=== PATIENT | female | born 1980 | race Caucasian/White ===

== ENCOUNTER 2017-11-30 10:27 | Day surgery (SDC) | payer OTHER, SELFPAY ==
[2017-11-30] VITALS (7 sets, daily range): BP systolic 124–140; BP diastolic 72–84; PULSE 61–95; RESP 16–18; TEMP 36.2–36.8; O2SAT 92–100; BMI 28.0
[2017-11-30] MEDS: Bupivacaine 0.25% 30 ML Vial (12:49)
[2017-11-30] MEDS: Cefazolin 2 GM in 0.9% Normal Saline 100 ML IV (12:49)
--- NOTE | 2017-11-30 13:23 | PCM.DC.URO ---
Discharge Diet: Light diet - advance as tolerated Discharge Activity: Return to Normal Activity, May not drive while taking narcotic pain medications. Call your doctor if your incision/area has: Continuous Slow Oozing, Sudden Increased Bleeding, Increased Pain/ Swelling, Increased Redness, Foul Smelling Discharge, Swelling at the incision site Call your doctor if you observe: Fever of 101 or Higher Instructions: Stress Urinary Incontinence: Having Midurethral Sling Surgery Allergies/Adverse Reactions: Allergies codeine Allergy (Verified 01/29/17 20:17) Rash NSAIDS (Non-Steroidal Anti-Inflamma Adverse Reaction (Verified 11/28/17 13:23) has had gastric bypass and can't marguerite. oral nsaids ropinirole [From Requip] Adverse Reaction (Verified 01/29/17 20:17) Low blood pressure Medications to take at Discharge Citalopram Hydrobromide [Celexa] 40 mg PO DAILY 05/06/14 Biotin 1 mg PO DAILY 11/28/17 Cyanocobalamin [Vitamin B12] 500 mcg PO DAILY@0800 11/28/17 Vitamin Patch 1 patch TOPICAL DAILY 11/28/17 Ciprofloxacin [Cipro] 500 mg PO BID #6 tab 11/30/17 Hydrocodone Bitart/Apap 5-325 [[place] 5MG-325MG] 1 tab PO Q6H PRN PRN 6 Days #20 tab 11/30/17 Primary Care Physician: Chandni Wang NP-C [Primary Care Provider] - Please Follow Up With: Raghu Stanley MD When: in 2 weeks, please call to make an appointment.
--- NOTE | 2017-11-30 13:28 | DCINST_ITS ---
Discharge Diet: Light diet - advance as tolerated Discharge Activity: Return to Normal Activity, May not drive while taking narcotic pain medications. Call your doctor if your incision/area has: Continuous Slow Oozing, Sudden Increased Bleeding, Increased Pain/ Swelling, Increased Redness, Foul Smelling Discharge, Swelling at the incision site Call your doctor if you observe: Fever of 101 or Higher Instructions: Stress Urinary Incontinence: Having Midurethral Sling Surgery Allergies/Adverse Reactions: Allergies codeine Allergy (Verified 01/29/17 20:17) Rash NSAIDS (Non-Steroidal Anti-Inflamma Adverse Reaction (Verified 11/28/17 13:23) has had gastric bypass and can't marguerite. oral nsaids ropinirole [From Requip] Adverse Reaction (Verified 01/29/17 20:17) Low blood pressure Medications to take at Discharge Citalopram Hydrobromide [Celexa] 40 mg PO DAILY 05/06/14 Biotin 1 mg PO DAILY 11/28/17 Cyanocobalamin [Vitamin B12] 500 mcg PO DAILY@0800 11/28/17 Vitamin Patch 1 patch TOPICAL DAILY 11/28/17 Ciprofloxacin [Cipro] 500 mg PO BID #6 tab 11/30/17 Hydrocodone Bitart/Apap 5-325 [[place] 5MG-325MG] 1 tab PO Q6H PRN PRN 6 Days #20 tab 11/30/17 Primary Care Physician: Chandni Wang NP-C [Primary Care Provider] - Please Follow Up With: Raghu Stanley MD When: in 2 weeks, please call to make an appointment.
--- NOTE | 2017-11-30 13:34 | OP.PCM_ITS ---
Problem List (1) Female stress incontinence Status: Acute Report of Operation Date of Procedure: 11/30/17 Pre-Operative Diagnosis: Stress incontinence Post-Operative Diagnosis: Same Surgery/Procedure Performed:: cystoscopy and placement of a tension-free vaginal sling with mesh Description of Surgical Findings:: 37-year-old female taken back to the operating room after smooth induction of general anesthesia she was placed supine on the table and then placed in high lithotomy position she underwent intubation and general anesthesia. The urethra and vaginal area and the vaginal vault were all prepped and draped also the lower abdomen was prepped and draped in usual sterile fashion I then placed a catheter into the bladder there was a 16 Sudanese catheter drain the bladder and marked out the mid urethra I then infiltrated the mid urethra with lidocaine mated incision in the vaginal mucosa right below the mid urethra using curved Kirk's and dissected space first of the left side laterally underneath the urethra to to the pubic bone into the space of Retzius and then under the right side again made a tractto the pubic bone on the right side. Once this is created then I marked the midline pubic bone went 2 cm from the midline on the right side and 2 cm the left side made a small incision in the skin past the first trocar top down on the right side passing behind the pubic bone into the space created in the vaginal mucosa for the trocar once this was passed then looked inside the bladder and there was no injury or perforation of the bladder by the trocar or injury of the urethra by the trocar and grabbed the end of the sling and plaque passed that up but a snap at this end I then went back to the right side past the trocar top down on the right side passing the trocar into the space of Retzius and then passing the trocar guiding the trocar down my finger guided right into this into the incision in the vaginal intramedullary mucosa on the right side once the trocar was passed on the right side looked inside the bladder and there was no injury or perforation of the bladder no injury to the urethra I then grabbed the end of the sling on that side pulled it up and then first a tension the sling flat below the urethra then I used a 20 Sudanese sound and tension the sling up on both sides up to the 20 Sudanese sound but no tighter than this once the sling was nice and flat below the urethra up to the 20 Sudanese sound then I cut both ends of the sling was pulled this sheath up and the sling was deployed and then pulled down the vaginal mucosa I checked a urethra sling was below the urethra again was not very tight I was nice and loose below the urethra and then cut off the sling suprapubically I then inspected the bladder again with a cystoscope using both the 30 and 70? lens there is no injury to the urethra no injury to the bladder. I then inspected the bladder circumferentially with 30 and 70? and no perforation of the bladder with the sling material then pulled the vaginal mucosa down over the sling again the sling was nice and loose below the urethra tension with proper and then closed the vaginal incision with interrupted 3-0 Vicryl's. I then closed the suprapubic incision with Dermabond glue. Patient' s bladder was drained her anesthesia was reversed and she is taken back to the PACU in good condition and she is able to urinate she will go home without a catheter. Type of Anesthesia:: General Drains: none - Admit VTE Documentation VTE Present on Admission: No VTE Mechan Device Prophylaxis: SCD's VTE Pharm Prophylaxis ordered?: No Reason prophylaxis not ordered:: Treatment Not Indicated
== END 2017-11-30 15:50 | disposition home or self-care (01) ==
LOC: SDC 10:28 → AC 10:30
PROVIDERS: Family Provider Nurse Practitioner Primary Care; PCP Nurse Practitioner Primary Care; Visit Provider Urology
PROC: 0TJB8ZZ Inspection of Bladder, Via Natural or Artificial Opening Endoscopic (ICD-10-PCS; CPT 57288; principal; 2017-11-30 12:20)
DX: N39.3 Stress incontinence (female) (male) (principal); F32.9 Major depressive disorder, single episode, unspecified; G25.81 Restless legs syndrome; J45.20 Mild intermittent asthma, uncomplicated; I15.9 Secondary hypertension, unspecified; Z86.718 Personal history of other venous thrombosis and embolism; Z86.711 Personal history of pulmonary embolism; Z98.84 Bariatric surgery status; Z79.899 Other long term (current) drug therapy; Z87.891 Personal history of nicotine dependence
CPT/HCPCS: 00860; 57288; J7120; C1771; J2405

== ENCOUNTER 2018-03-22 06:49 | Day surgery (SDC) | payer OTHER, SELFPAY ==
[2018-03-22 06:17] VITALS: BP 138/89; PULSE 52; RESP 14; TEMP 36.3; O2SAT 98; BMI 27.3
--- NOTE | 2018-03-22 07:25 | PCM.DC.URO ---
Discharge Diet: Light diet - advance as tolerated Discharge Activity: May not drive while taking narcotic pain medications. May shower in (days): 2 Call your doctor if your incision/area has: Continuous Slow Oozing, Sudden Increased Bleeding, Increased Pain/ Swelling, Increased Redness, Foul Smelling Discharge, Swelling at the incision site Call your doctor if you observe: Fever of 101 or Higher Suture Line Care: Avoid Pulling/Pushing, Avoid Pinching/Bending Allergies/Adverse Reactions: Allergies codeine Allergy (Verified 03/15/18 12:56) Rash NSAIDS (Non-Steroidal Anti-Inflamma Adverse Reaction (Verified 03/15/18 12:56) has had gastric bypass and can't marguerite. oral nsaids ropinirole [From Requip] Adverse Reaction (Verified 03/15/18 12:56) Low blood pressure Medications to take at Discharge Citalopram Hydrobromide [Celexa] 40 mg PO DAILY 05/06/14 Biotin 1 mg PO DAILY 11/28/17 Cyanocobalamin [Vitamin B12] 500 mcg PO TUTA 11/28/17 Vitamin Patch 1 patch TOPICAL DAILY 11/28/17 Iron,Carbonyl [Carbonyl Iron] 65 mg PO TUTHSA 03/15/18 Oxybutynin Chloride [Ditropan Xl] 10 mg PO DAILY 03/15/18 Cephalexin [Keflex] 500 mg PO Q8 #9 cap 03/22/18 Hydrocodone/Acetaminophen [[place] 5-325 Tablet] 1 ea PO Q4H PRN PRN 3 Days #10 tab 03/22/18 The following prescriptions were given: Hydrocodone/Acetaminophen [[place] 5-325 Tablet] 1 ea PO Q4H PRN PRN 3 Days #10 tab PRN Reason: Pain Cephalexin [Keflex] 500 mg PO Q8 #9 cap Primary Care Physician: Chandni Wang NP-C [Primary Care Provider] - Please Follow Up With: Raghu Stanley MD When: Surgery next Sunday.
[2018-03-22] MEDS: Cefazolin 2 GM in 0.9% Normal Saline 100 ML IV (07:30)
--- NOTE | 2018-03-22 07:30 | RAD_ITS ---
STUDY: X-RAY - PELVIS REASON FOR EXAM: Female, 37 years old. InterStim therapy. TECHNIQUE: One view of the pelvis was obtained. COMPARISON: None. FINDINGS: Intraoperative imaging was provided for InterStim therapy. The metallic device is seen overlying the right upper pelvis. RAD/Pelvis 1 or 2 Views IMPRESSION: Imaging provided for InterStim therapy. Electronically Signed: Ramo Williamson MD at 10:29 EDT Tel [phone], Service support ,
[2018-03-22 08:50] VITALS: BP 135/89; BP 138/89; PULSE 59; RESP 18; O2SAT 100
--- NOTE | 2018-03-22 08:50 | OP.PCM_ITS ---
Report of Operation Date of Procedure: 03/22/18 Pre-Operative Diagnosis: Overactive bladder and urge incontinence Post-Operative Diagnosis: Same Surgery/Procedure Performed:: InterStim implant stage I Description of Surgical Findings:: 37-year-old female who has a history of gastric bypass surgery and obesity was lost a lot of weight and she had a history of stress incontinence and mixed incontinence she underwent a sling procedure which help with the stress incontinence but still has severe urge incontinence at night she will be laying in bed and suddenly get wet with sudden spasms. She is tried multiple medications with no improvement. We did a staged PNE in the office for a test which went successful for about a day so because of this we are going to do a staged implant for InterStim to see if this will help with her bladder control and urge incontinence. 37-year-old female placed supine on the table she underwent sedation the lower back and sacral area was then prepped and draped in usual sterile fashion. We then used fluoroscopy to identify the sacral promontory's connected this with the needle and then lined up the other needle along the edge of the sacrum to hopefully find the S3 foramen. We started then on the patient's right side and put the first needle in we used fluoroscopy both AP and lateral view appeared to be that the first needle was and what we suspected either an S4 S3 we tested it and we had good brittany but no toe, so then we went 2 cm higher and put the needle and again suspected that this could be S3 however he had angular rotation of the calf and hip and brittany so in looking at it we felt that the angle coming into the foramen was to sleep so then we went further higher North with a more acute angle and came into what felt like the S3 on the skin on the sacrum under fluoroscopy we tested this needle point and at this point we had good brittany and also be a good toe response in the right side we decided to use this of the implant since we had good motor response of both brittany and toe , I then made an incision in the skin, use the guidewire through the needle left this in place, then used the introducer sheath and advanced this all the way down so that the radiopaque marker in the introduced sheath was in the lower two thirds between the plates of the anterior and posterior plate of the sacrum. Once this was there then we advanced the tined permanent wire through the sheath and we made sure that we had one stimulation above the plate and 3 below the plate, and then we tested 0, 1, 2, 3 and all 3 sites had good response on brittany and toe. Once the secured all 3 responses then pulled back on the sheath and this deployed the tines to secure the lead in place we then made an small incision on the lateral aspect of the patient's right buttocks and below the iliac crest. We then attached the temporary lead to the permanent lead and then tunneled this to the lateral side and then attached this lead to the temporary connector device. The incisions were then closed with subcuticular particular stitches. Dressings were placed, and then patient was taken back to the PACU in stable condition and will activate the InterStim device for a week of trial stimulation she will be back next week for either removal of the device if it fails, or implant of the generator, anticipate that she will do fairly well since we had a good placement of the lead and good response and brittany and toes. Type of Anesthesia:: General Drains: none - Admit VTE Documentation VTE Present on Admission: No VTE Mechan Device Prophylaxis: SCD's VTE Pharm Prophylaxis ordered?: No Reason prophylaxis not ordered:: Treatment Not Indicated
[2018-03-22 08:51] VITALS: BP 128/85; BP 138/89; PULSE 66; RESP 18; TEMP 36.1; O2SAT 99
[2018-03-22 09:00] VITALS: BP 121/87; BP 138/89; PULSE 64; RESP 18; O2SAT 100
[2018-03-22 09:04] VITALS: BP 138/89; BP 146/89; PULSE 63; RESP 18; TEMP 35.7; O2SAT 100
[2018-03-22 10:22] VITALS: BP 138/89
== END 2018-03-22 10:36 | disposition home or self-care (01) ==
LOC: SDC 06:50 → AC 06:50
PROVIDERS: Family Provider Nurse Practitioner Primary Care; PCP Nurse Practitioner Primary Care; Visit Provider Urology
PROC: (CPT 64581; principal; 2018-03-22 07:15)
DX: N32.81 Overactive bladder (principal); N39.46 Mixed incontinence; F32.9 Major depressive disorder, single episode, unspecified; Z98.84 Bariatric surgery status; Z86.711 Personal history of pulmonary embolism; Z87.891 Personal history of nicotine dependence; G47.30 Sleep apnea, unspecified; G25.81 Restless legs syndrome; E66.9 Obesity, unspecified; Z68.27 Body mass index [BMI] 27.0-27.9, adult; Z71.3 Dietary counseling and surveillance
CPT/HCPCS: 00630; 64581; 95972; 72170; 76000; C1778; C1820

== ENCOUNTER 2018-03-29 10:39 | Day surgery (SDC) | payer OTHER, SELFPAY ==
[2018-03-29] VITALS (8 sets, daily range): BP systolic 105–135; BP diastolic 69–83; PULSE 48–66; RESP 14–16; TEMP 36.3–36.7; O2SAT 92–100; BMI 27.1
[2018-03-29] MEDS: Cefazolin 2 GM in 0.9% Normal Saline 100 ML IV (12:15)
--- NOTE | 2018-03-29 13:25 | DCINST_ITS ---
Discharge Diet: Light diet - advance as tolerated Discharge Activity: Return to Normal Activity, May not drive while taking narcotic pain medications. May shower in (days): 2 Call your doctor if your incision/area has: Continuous Slow Oozing, Sudden Increased Bleeding, Increased Pain/ Swelling, Increased Redness, Foul Smelling Discharge, Swelling at the incision site Call your doctor if you observe: Fever of 101 or Higher Suture Line Care: Avoid Pulling/Pushing, Avoid Pinching/Bending Allergies/Adverse Reactions: Allergies codeine Allergy (Verified 03/15/18 12:56) Rash NSAIDS (Non-Steroidal Anti-Inflamma Adverse Reaction (Verified 03/15/18 12:56) has had gastric bypass and can't marguerite. oral nsaids ropinirole [From Requip] Adverse Reaction (Verified 03/15/18 12:56) Low blood pressure Medications to take at Discharge Citalopram Hydrobromide [Celexa] 40 mg PO DAILY 05/06/14 Biotin 1 mg PO DAILY 11/28/17 Cyanocobalamin [Vitamin B12] 500 mcg PO TUTHSA 11/28/17 Vitamin Patch 1 patch TOPICAL DAILY 11/28/17 Iron,Carbonyl [Carbonyl Iron] 65 mg PO TUTA 03/15/18 Oxybutynin Chloride [Ditropan Xl] 10 mg PO DAILY 03/15/18 Cephalexin [Keflex] 500 mg PO Q8 #9 cap 03/22/18 Hydrocodone/Acetaminophen [[place] 5-325 Tablet] 1 ea PO Q4H PRN PRN 3 Days #10 tab 03/22/18 Cephalexin [Keflex] 500 mg PO Q8 #9 cap 03/29/18 Hydrocodone/Acetaminophen [[place] 5-325 Tablet] 1 ea PO Q4H PRN PRN 5 Days #14 tab 03/29/18 The following prescriptions were given: Hydrocodone/Acetaminophen [[place] 5-325 Tablet] 1 ea PO Q4H PRN PRN 5 Days #14 tab PRN Reason: Pain Cephalexin [Keflex] 500 mg PO Q8 #9 cap Primary Care Physician: Chandni Wang NP-C [Primary Care Provider] - Please Follow Up With: Raghu Stanley MD When: April 25 at 10 am.
--- NOTE | 2018-03-29 13:26 | PCM.OPRPT ---
Report of Operation Date of Procedure: 03/29/18 Pre-Operative Diagnosis: Urge incontinence and overactive bladder status post stage I InterStim implant Post-Operative Diagnosis: Same Surgery/Procedure Performed:: Stage II implant of InterStim device Description of Surgical Findings:: 37-year-old female with severe urge incontinence and overactive bladder who presents to the operating room for stage II implant, she underwent stage I implant last week and had a very good response. She had good control of her bladder was much matrix drier tender had less accidents and was happy with the response to proceed with stage II implant of the generator device. 37-year-old female taken back to the operating room she was placed supine and then position face down on the table made sure all her pressure points were padded she was secured and comfortable in the bed then underwent sedation by anesthesia, the bandages and dressings were removed from stage I implant we left a temporary extension off the field we then prepped and draped the field over the generator implant site. Made an incision following the old incision of the implant site cutting the old stitches and then also cut the old Lisa's fascia stitches, I then found the temporary and the permanent lead I cut the stitches on the boot and remove the plastic boot and then I cut the boot off the temporary extension wire and then the extension wire was then pulled off the field from under the drapes by the nurse, I think clean the lead and inspected there is no signs of injury or damage and then placed the lead into the generator and put the generator into the pocket and we tested it, when we tested the first time we had very high impedances we took out the lead and the generator injected remove the cleaned it again and reposition the lead into the generator making sure it was all the way with all the blue showing, I then used the wrench and tightened the screw on the generator for 2 clicks and then I could see all the blue from the from the permanent lead and the generator and the put the generator in the pocket and we tested for impedance and we had very good results with low impedance. With I then closed the pocket with interrupted 3-0 Vicryl and a subcuticular 4-0 Monocryl in the skin and placed Steri-Strips on the skin. Patient was then awakened from anesthesia and taken back to PACU in good condition and she will undergo training on how to use the InterStim device and will follow-up in about a month for checkup. Type of Anesthesia:: Local MAC Drains: none - Admit VTE Documentation VTE Present on Admission: No VTE Mechan Device Prophylaxis: SCD's VTE Pharm Prophylaxis ordered?: No Reason prophylaxis not ordered:: Treatment Not Indicated
== END 2018-03-29 14:59 | disposition home or self-care (01) ==
LOC: SDC 10:40 → AC 10:40
PROVIDERS: Family Provider Nurse Practitioner Primary Care; PCP Nurse Practitioner Primary Care; Visit Provider Urology
PROC: (CPT 64581; principal; 2018-03-29 12:00)
DX: N32.81 Overactive bladder (principal); F32.9 Major depressive disorder, single episode, unspecified; Z86.718 Personal history of other venous thrombosis and embolism; Z98.84 Bariatric surgery status; Z79.899 Other long term (current) drug therapy; Z87.891 Personal history of nicotine dependence; G25.81 Restless legs syndrome; N39.46 Mixed incontinence; J45.20 Mild intermittent asthma, uncomplicated
CPT/HCPCS: 00630; 64581; 64590; J7120; C1767; J2405

== ENCOUNTER 2019-12-14 14:42 | Emergency (ER) | payer OTHER, SELFPAY ==
[2019-12-14 14:42] VITALS: BP 158/106; PULSE 98; RESP 16; TEMP 36.8; O2SAT 100; BMI 28.0; BMI 33.4
--- NOTE | 2019-12-14 15:04 | CT_ITS ---
STUDY: CT ABDOMEN AND PELVIS WITH CONTRAST REASON FOR EXAM: Female, 39 years old. LOW PELVIS PAIN WITH DYSURIA, PRIOR BLADDER FISTULA REPAIR, GASTRIC BY-PASS, APPY, PARTIAL HYSTERECTOMY AND TENS UNIT FOR BLADDER RADIATION DOSAGE (If Supplied By Facility): CTDIvol = ( 17.41 ) mGy, DLP = ( 2073.62 ) mGycm TECHNIQUE: Transaxial images were obtained from the dome of the diaphragm to the symphysis pubis without oral contrast. IV 100mL Isovue-[id number] was administered. Sagittal and coronal images were reconstructed. Individualized dose optimization techniques were used for this CT. COMPARISON: Previous study of December 13, 2016 FINDINGS: The visualized lung bases are unremarkable. The visualized portions of the heart are within normal limits. Normal liver. Normal gallbladder and extrahepatic biliary system. Normal spleen. Normal pancreas. Normal bilateral adrenal glands. Normal right kidney. Normal left kidney. Status post gastric surgical changes are noted. Postsurgical changes of small bowel in the left upper quadrant of the abdomen are also noted. Normal colon. There is non-visualization of the appendix. Normal abdominal aorta. Normal inferior vena cava. Normal retroperitoneum. Normal urinary bladder. There is absence of the uterus consistent with a prior hysterectomy. There is a 1.3 cm left ovarian cyst. There is a stimulator unit in the subcutaneous soft tissues of the right gluteal area with electrode lead seen in the right presacral region. Normal osseous structures. CT/Abdomen/Pelvis W IV Cont ONLY IMPRESSION: 1. Status post gastric surgical changes. 2. Postsurgical changes of small bowel in the left upper quadrant of the abdomen. 3. Status post hysterectomy. 4. Stimulator unit seen in the subcutaneous soft tissues of the right gluteal area with electrode lead seen in the right presacral region. 5. There is no evidence of free intra-abdominal or intrapelvic air, fluid, or inflammatory process. Electronically Signed: Hany Newman MD at 16:54 EST , Service support ,
[2019-12-14] MEDS: Ondansetron 4 MG/2 ML Vial IV (15:15)
[2019-12-14] MEDS: 0.9% Normal Saline 1,000 ML 1000 ML IV (15:16)
[2019-12-14] MEDS: Morphine 4 MG/ML Syringe IV (15:16)
[2019-12-14 15:35] LABS: Mucous, Urine 0 SEEN /hpf (<or=2+)
[2019-12-14 15:36] LABS: Color, Urine Yellow (Yellow); Glucose, Dipstick Normal (Normal); Ketone-Dipstick Negative (Negative); Leukocyte Esterase-Dipstick 500 /ul (Negative); Nitrite-Dipstick Negative (Negative); Occult Blood-Urine 150 /ul (Negative); Protein-Dipstick 100 mg/dl (Negative); Specific Gravity, Urine 1.015 (1.002-1.030); Urine Bilirubin Dipstick Negative (Negative); Urine Clarity Cloudy (Clear); Urine Urobilinogen 1 mg/dl (Normal)
[2019-12-14 15:43] LABS: Absolute Lymphocyte Count 1.55 X10^3/uL (0.83-4.51); Absolute Neutrophil Count 5.3 X10^3/uL (2.0-7.7); Basophil# 0.07 X10^3/uL; Basophil% 0.9 % (0-1); Eosinophil# 0.46 X10^3/uL; Eosinophils% 5.6 % (0-5); Hematocrit 43.6 % (37-47); Hemoglobin 14.2 g/dL (12.0-15.0); Lymphocyte # 1.55 X10^3/ul (4.0); Lymphocyte % 18.9 % (19-41); Mean Corp Hgb Conc 32.6 g/dL (32-36); Mean Corpuscular Hgb 28.7 pg (27.0-32.0); Mean Corpuscular Volume 88.3 fL (81-99); Mean Platelet Vol. 10.2 fl (6.2-12.0); Monocyte# 0.78 X10^3/uL; Monocyte% 9.5 % (0-10); NRBC Flagged by Analyzer 0 % (0-5); Neutrophil # 5.31 X10^3/uL (2.7-7.7); Neutrophil % 64.9 % (47-70); Platelet Count 236 K/mm3 (150-450); RBC Distribution Width CV 13.3 % (11.6-14.6); Red Blood Count 4.94 M/mm3 (4.2-5.4); White Blood Count 8.2 K/mm3 (4.4-11.0)
[2019-12-14 15:44] LABS: White Blood Cells >100 SEEN /hpf (0-5)
[2019-12-14 15:45] LABS: Red Blood Cells-Urine 5-10 SEEN /hpf (0-5); Squamous Epithelial Cells - UA 5-10 SEEN /hpf (5-10)
[2019-12-14 15:46] LABS: Bacteria 1+ /hpf (None Seen)
[2019-12-14 15:53] LABS: ALB/GLOB Ratio 0.9 RATIO (0.9-2.4); AST(SGOT) 21 U/L (15-37); Alanine Aminotransfer ALT/SGPT 27 U/L (13-56); Albumin, Serum 3.1 g/dL (3.2-5.0); Alkaline Phosphatase 98 U/L (45-117); Anion Gap 3 (5-15); BUN 12 mg/dL (7-18); BUN/Creat Ratio 13.5 RATIO (10-20); Calcium,Total 8.6 mg/dL (8.5-10.1); Chloride 109 mmol/L (98-107); Creatinine, Serum 0.89 mg/dL (0.55-1.02); EST Glomerular Filtration Rate 75 mL/min (>60); Est Glom Filt Rate - Afr Amer 91 mL/min (>60); Estimated Creatinine Clearance 79.45 ml/min; Globulin 3.6 g/dL (2.2-4.2); Glucose 133 mg/dL (74-106); Lipase 43 U/L (73-393); Potassium 3.6 mmol/L (3.5-5.1); Protein, Total 6.7 g/dL (6.4-8.2); Sodium Level 141 mmol/L (136-145)
--- NOTE | 2019-12-14 17:04 | ED.DCSUM_ITS ---
History of Present Illness Informant: Patient - Abdominal Pain/Flank Pain Onset: Yesterday Context: Gradual Onset Timing: Continuous Quality: Sharp Location: RLQ, LLQ Current Severity: Severe Maximum Severity: Severe Worsened by: Movement Relieved by: Remaining Still - Nausea/Vomiting/Emesis GI Symptom: Nausea. Negative for: Vomiting - Diarrhea/Melena/Hematochezia GI Symptom: Negative for: Diarrhea, Melena, Hematochezia Associated Symptoms: Dysuria, Frequency, Urgency. 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 She describes the pain is sharp and stabbing. Pain is constant only worse with movement. She has had nausea without vomiting. She denies diarrhea melena or hematochezia. She has no vaginal bleeding or discharge which she has had a hysterectomy. She does have history of ovarian cyst. She also has a history of UTI. She has not yet been on antibiotics. She has not been constipated. 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 oral nsaids ropinirole [From Requip] Adverse Reaction (Verified 12/14/19 15:02) Low blood pressure Primary Care Physician: Chandni Wang NP-C [Primary Care Provider] - Review of Systems All systems negative except as indicated General: Denies: Chills, Fever Eyes: Denies: Visual changes - bilaterally, Blurred Vision - bilaterally, Diplopia ENT: Denies: Rhinorrhea, Sore throat Cardiovascular: Denies: Chest pain, Palpitations, Heart racing Respiratory: Denies: Dyspnea, Cough, Sputum, Dyspnea on exertion, Orthopnea Gastrointestinal: Reports: Abdominal pain, Nausea. Denies: Vomiting, Diarrhea, Constipation, Melena, Hematochezia Genitourinary: Reports: Dysuria, Frequency. Denies: Hematuria Musculoskeletal: Denies: Myalgias, Arthralgias, Neck pain, Back pain Skin: Denies: Rash, Abscess, Abrasions, Wounds Neurological: Denies: Weakness, Parasthesia Hematologic: Denies: Easy bruising, Easy bleeding <Yadiel Mendosa - Last Filed: 12/14/19 17:04> Physical Exam Vital Signs/Narrative: Vital Signs Temp Pulse Resp BP Pulse Ox 12/14/19 14:42 98.2 F 98 16 158/106 H 100 Inital Vital Signs reviewed: Yes General: Well nourished, Well developed, No Acute Distress Head: Normocephalic, Atraumatic Eyes: Perrl, EOMI ENT: Moist mucous membranes Neck: Supple, Nontender Cardiovascular: Regular rate, Regular rhythm, No murmurs Respiratory: No distress, CTA bilaterally, Chest nontender Abdomen: Soft, Nondistended, Normal bowel sounds, No masses, Tender - Patient has right lower quadrant and left lower quadrant tenderness on palpation. There is no guarding or rebound. She has no CVA tenderness.. Negative for: Jameson's sign Back: Nontender, Normal Inspection. Negative for: CVA tenderness Extremities: Nontender, No edema Skin: Normal color, No rash Neurological: Alert, Oriented x3 <Yadiel Mendosa - Last Filed: 12/14/19 17:04> Vital Signs/Narrative: Vital Signs Pulse Resp BP Pulse Ox 12/14/19 19:12 80 18 132/77 H 100 12/14/19 17:53 71 16 159/89 H 98 <Carlos Elise - Last Filed: 12/14/19 20:44> Diagnostic/Tx/Re-eval CT: Abdomen and Pelvis - Medical Decision Making Patient was treated with IV fluids as well as morphine and Zofran. CBC, CMP, lipase were obtained and all are unremarkable. Urinalysis is consistent with a urinary tract infection she has positive nitrates as well as 25 white blood cells seen. CT scan abdomen pelvis with IV contrast shows chronic changes from a gastric bypass surgery but there is no acute intra-abdominal or intrapelvic abnormalities noted of the radiologist. Repeat exam, repeat abdominal exam is soft nontender and the patient is able to tolerate by mouth. We will discharge the patient home with Keflex. She will follow-up with her primary care this week. A urine culture was sent. I will also prescribe her Zofran. She was given return precautions. Patient was agreeable with plan of care and all questions were answered. <Yadiel Mendosa - Last Filed: 12/14/19 17:04> - Medical Decision Making Patient presents with lower abdominal pain. Vitals as above. Nontoxic. Alert and oriented. Skin appears normal. Abdomen soft. CT unremarkable. Nothing acute. Urinalysis shows signs of infection. Otherwise labs unremarkable. Culture pending. Patient was treated with Rocephin and discharged on Keflex. Follow-up with primary care. Return for any new or worsening issues. <Carlos Elise - Last Filed: 12/14/19 20:44> ED Disposition <Yadiel Mendosa - Last Filed: 12/14/19 17:04> <Carlos Elise - Last Filed: 12/14/19 20:44> - Plan for ED Patient: Disposition: Home or Assisted Living Diagnosis: UTI (urinary tract infection), Abdominal pain Instructions: Bladder Infection, Female (Adult) Prescriptions: Cephalexin [Keflex] 500 mg PO BID #14 cap Prescription Printed Ondansetron [Zofran Odt] 4 mg PO Q8H PRN PRN #12 tab PRN Reason: Nausea Prescription Printed Referrals: Chandni Wang NP-C [Primary Care Provider] -
[2019-12-14] MEDS: Ceftriaxone 1 GM/50 ML BAG IV (17:23)
[2019-12-14] MEDS: oxyCODONE 5 MG Tablet PO (17:42)
[2019-12-14 17:53] VITALS: BP 159/89; PULSE 71; RESP 16; O2SAT 98
[2019-12-14 19:12] VITALS: BP 132/77; PULSE 80; RESP 18; O2SAT 100
== END 2019-12-14 19:14 | disposition home or self-care (01) ==
PROVIDERS: Emergency Provider Physician Assistant Medical; PCP Nurse Practitioner Primary Care
DX: N39.0 Urinary tract infection, site not specified (principal); N83.209 Unspecified ovarian cyst, unspecified side; Z87.440 Personal history of urinary (tract) infections; Z98.84 Bariatric surgery status; Z87.891 Personal history of nicotine dependence
CPT/HCPCS: 74177; 80053; 81001; 83690; 85025; 96361; 96365; 96374; 96375; 99284; J7030; Q9967; J2405

== ENCOUNTER 2020-02-18 00:30 | Emergency (ER) | payer OTHER, SELFPAY ==
[2019-12-14 14:42] VITALS: BMI 33.4
[2020-02-18 00:31] VITALS: BP 150/88; PULSE 69; RESP 16; TEMP 36.7; O2SAT 100; BMI 34.2
--- NOTE | 2020-02-18 00:51 | ED.VIS.GEN ---
History of Present Illness Chief Complaint: Complaint Informant: Patient Narrative: Patient stated since yesterday she has had dysuria without hematuria. She has some lower bladder discomfort. She has a history of frequent UTIs in the past secondary to fistula. No fevers or chills. She is felt some slight myalgias. Current severity is mild. She took Tylenol. History of hysterectomy. Worsened by urinating. Relieved by rest. - Past Medical History (1) Female stress incontinence Status: Acute (2) HTN (hypertension) Status: Chronic Past Medical History - Allergies and Home Meds Allergies/Adverse Reactions: Allergies codeine Allergy (Verified 02/18/20 00:35) Rash NSAIDS (Non-Steroidal Anti-Inflamma Adverse Reaction (Verified 02/18/20 00:35) has had gastric bypass and can't marguerite. 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 Denies: Hematuria Musculoskeletal: Denies: Back pain, Extremity Pain Skin: Denies: Rash, Wounds Neurological: Denies: Headache, Weakness, Numbness Physical Exam Vital Signs/Narrative: Vital Signs Temp Pulse Resp BP Pulse Ox 02/18/20 00:31 98.1 F 69 16 150/88 H 100 General: Well nourished, Well developed, No Acute Distress Head: Normocephalic, Atraumatic Eyes: Perrl, EOMI ENT: Moist mucous membranes, No rhinorrhea Neck: Supple, Nontender Cardiovascular: Regular rate, Regular rhythm, No murmurs Respiratory: No distress, CTA bilaterally, Chest nontender Abdomen: Soft, Nontender, Nondistended, Normal bowel sounds Back: Nontender, Normal Inspection Extremities: Nontender, No edema Skin: Normal color, No rash Neurological: Alert, Oriented x3, Cranial nerves II-XII grossly intact, Normal Strength, Normal Sensation Psychological: Normal affect, Normal Mood Diagnostic/Tx/Re-eval - Medical Decision Making Urine analysis obtained. Urine analysis was negative. Lab work was obtained via her blood. CBC showed a very mild leukocytosis without left shift. Electrolytes showed a mildly low calcium and mildly elevated chloride nonspecific. Liver function test showed nothing acute. Lipase normal. I discussed with the patient. She felt better after 1 dose of morphine. She has had a hysterectomy in the past. She is not having any vaginal discharge therefore I feel she has a low risk for STD. She does not feel she needs a pelvic exam. She does have a history of ovarian cyst. It could be that she has an ovarian cyst causing discomfort. She will follow-up with her family doctor. I do not think she needs an emergent CT or ultrasound. I have a low suspicion for diverticulitis or pelvic inflammatory disease ED Disposition - Plan for ED Patient: Disposition: Home or Assisted Living Diagnosis: Abdominal pain, Hypocalcemia, Hyperchloremia, Leukocytosis, Dysuria Instructions: ED Abdominal Pain Unkn Cause Fem Prescriptions: Hydrocodone Bitart/Apap 5-325 [[place] 5MG-325MG] 1 - 2 tab PO Q4H PRN PRN 2 Days #10 tab PRN Reason: Pain Prescription Printed Referrals: Chandni Wang NP-C [Primary Care Provider] -
[2020-02-18 01:06] LABS: Mucous, Urine 0 SEEN /hpf (<or=2+); Squamous Epithelial Cells - UA 0 SEEN /hpf (5-10)
[2020-02-18 01:07] LABS: Color, Urine Yellow (Yellow); Glucose, Dipstick Normal (Normal); Ketone-Dipstick Negative (Negative); Leukocyte Esterase-Dipstick Negative /ul (Negative); Nitrite-Dipstick Negative (Negative); Occult Blood-Urine 10 /ul (Negative); Protein-Dipstick 500 mg/dl (Negative); Urine Bilirubin Dipstick Negative (Negative); Urine Clarity Sl. Cloudy (Clear); Urine Urobilinogen 1 mg/dl (Normal)
[2020-02-18 01:16] LABS: Bacteria RARE /hpf (None Seen); Red Blood Cells-Urine 0-5 SEEN /hpf (0-5); White Blood Cells 0-5 SEEN /hpf (0-5)
[2020-02-18] MEDS: Morphine 4 MG/ML Syringe IV (01:43)
[2020-02-18 01:53] LABS: Absolute Neutrophil Count 7.3 X10^3/uL (2.0-7.7); Basophil# 0.08 X10^3/uL; Basophil% 0.7 % (0-1); Eosinophil# 0.56 X10^3/uL; Hematocrit 43.1 % (37-47); Lymphocyte % 22.1 % (19-41); Mean Corp Hgb Conc 32.5 g/dL (32-36); Mean Corpuscular Hgb 28.2 pg (27.0-32.0); Mean Corpuscular Volume 86.9 fL (81-99); Mean Platelet Vol. 10.1 fl (6.2-12.0); Monocyte# 0.82 X10^3/uL; Monocyte% 7.3 % (0-10); NRBC Flagged by Analyzer 0 % (0-5); Neutrophil # 7.31 X10^3/uL (2.7-7.7); Neutrophil % 64.6 % (47-70); Platelet Count 206 K/mm3 (150-450); RBC Distribution Width CV 13.2 % (11.6-14.6); RBC Distribution Width SD 41.7 fl (35.1-43.9); Red Blood Count 4.96 M/mm3 (4.2-5.4); White Blood Count 11.3 K/mm3 (4.4-11.0)
[2020-02-18 02:10] LABS: ALB/GLOB Ratio 0.8 RATIO (0.9-2.4); AST(SGOT) 21 U/L (15-37); Alanine Aminotransfer ALT/SGPT 22 U/L (13-56); Albumin, Serum 3.1 g/dL (3.2-5.0); Alkaline Phosphatase 86 U/L (45-117); Anion Gap 4 (5-15); BUN 14 mg/dL (7-18); BUN/Creat Ratio 20.1 RATIO (10-20); Calcium,Total 8.3 mg/dL (8.5-10.1); Chloride 110 mmol/L (98-107); EST Glomerular Filtration Rate 100 mL/min (>60); Est Glom Filt Rate - Afr Amer 121 mL/min (>60); Estimated Creatinine Clearance 101.01 ml/min; Globulin 3.7 g/dL (2.2-4.2); Glucose 91 mg/dL (74-106); Lipase 59 U/L (73-393); Potassium 3.8 mmol/L (3.5-5.1); Protein, Total 6.8 g/dL (6.4-8.2); Sodium Level 140 mmol/L (136-145)
[2020-02-18 02:28] VITALS: BP 124/78; PULSE 64; RESP 16; O2SAT 99
== END 2020-02-18 02:30 | disposition home or self-care (01) ==
PROVIDERS: Emergency Provider Emergency Medicine; PCP Nurse Practitioner Primary Care
DX: R10.9 Unspecified abdominal pain (principal); E83.51 Hypocalcemia; E87.8 Other disorders of electrolyte and fluid balance, not elsewhere classified; D72.829 Elevated white blood cell count, unspecified; R30.0 Dysuria; Z87.440 Personal history of urinary (tract) infections; Z98.84 Bariatric surgery status; Z90.710 Acquired absence of both cervix and uterus; F17.200 Nicotine dependence, unspecified, uncomplicated
CPT/HCPCS: 80053; 81001; 83690; 85025; 96374; 99282; A4216

== ENCOUNTER → 2020-02-27 11:35 | Outpatient (CLI) | payer OTHER, SELFPAY ==
[2020-02-18 00:31] VITALS: BMI 34.2
[2020-02-27 12:32] LABS: Absolute Lymphocyte Count 1.21 X10^3/uL (0.83-4.51); Absolute Neutrophil Count 5.2 X10^3/uL (2.0-7.7); Basophil# 0.05 X10^3/uL; Basophil% 0.6 % (0-1); Eosinophil# 0.83 X10^3/uL; Eosinophils% 10.3 % (0-5); Hematocrit 40.5 % (37-47); Hemoglobin 12.9 g/dL (12.0-15.0); Lymphocyte # 1.21 X10^3/ul (4.0); Mean Corp Hgb Conc 31.9 g/dL (32-36); Mean Corpuscular Hgb 28.2 pg (27.0-32.0); Mean Corpuscular Volume 88.4 fL (81-99); Mean Platelet Vol. 9.9 fl (6.2-12.0); Monocyte# 0.73 X10^3/uL; NRBC Flagged by Analyzer 0 % (0-5); Neutrophil # 5.22 X10^3/uL (2.7-7.7); Neutrophil % 64.7 % (47-70); Platelet Count 228 K/mm3 (150-450); RBC Distribution Width CV 13.1 % (11.6-14.6); RBC Distribution Width SD 42.4 fl (35.1-43.9); Red Blood Count 4.58 M/mm3 (4.2-5.4); White Blood Count 8.1 K/mm3 (4.4-11.0)
[2020-02-27 12:57] LABS: Anion Gap 4 (5-15); BUN 12 mg/dL (7-18); BUN/Creat Ratio 17.6 RATIO (10-20); Calcium,Total 8.4 mg/dL (8.5-10.1); Chloride 108 mmol/L (98-107); Creatinine, Serum 0.68 mg/dL (0.55-1.02); EST Glomerular Filtration Rate 102 mL/min (>60); Est Glom Filt Rate - Afr Amer 124 mL/min (>60); Glucose 96 mg/dL (74-106); Potassium 4.1 mmol/L (3.5-5.1); Sodium Level 140 mmol/L (136-145)
== END ==
PROVIDERS: PCP Nurse Practitioner Primary Care; Referring Provider Obstetrics & Gynecology Gynecology; Visit Provider Obstetrics & Gynecology Gynecology
DX: E87.5 Hyperkalemia (principal); Z48.816 Encounter for surgical aftercare following surgery on the genitourinary system
CPT/HCPCS: 36415; 80048; 85025

== ENCOUNTER 2020-05-20 20:38 | Emergency (ER) | payer OTHER, SELFPAY ==
[2020-05-20 20:39] VITALS: BP 134/85; PULSE 84; RESP 16; TEMP 36.7; O2SAT 96; BMI 33.7
--- NOTE | 2020-05-20 21:21 | US_ITS ---
STUDY: ULTRASOUND OF THE FEMALE PELVIS - COMPLETE REASON FOR EXAM: Female, 39 years old. Right lower quadrant pelvic pain. Fever, shortness of breath and bodyaches. History of hysterectomy with left oophrectomy. TECHNIQUE: Transvaginal TECHNICAL QUALITY: Adequate. COMPARISON: CT of the abdomen and pelvis, 12-14-19. FINDINGS: The uterus is surgically absent. The right ovary is visualized. The right ovary measures 3.9 x 2.2 x 1.3 cm. There is a 1.1 x 0.7 x 0.7 cm dominant follicle. There is no visualized right adnexal mass or complex lesion. There is normal arterial and normal venous vascularity. The left ovary is surgically absent. There is no visualized left adnexal mass or complex lesion. There is no fluid in the cul-de-sac. Polycystic ovary disease: No. US/Transvaginal Non- IMPRESSION: 1. Status post hysterectomy and left oophrectomy. 2. Normal right ovary with dominant follicle. 3. Otherwise normal pelvic ultrasound. Electronically Signed: Femi Brennan DO at 22:59 EDT Tel [phone], Service support ,
[2020-05-20] MEDS: Ondansetron 4 MG/2 ML Vial IV (21:57)
[2020-05-20] MEDS: 0.9% Normal Saline 1,000 ML 1000 ML IV (21:57)
[2020-05-20 22:07] LABS: Bacteria 0 SEEN /hpf (None Seen); Mucous, Urine 0 SEEN /hpf (<or=2+)
[2020-05-20 22:11] LABS: Color, Urine Yellow (Yellow); Glucose, Dipstick Normal (Normal); Ketone-Dipstick 15 mg/dl (Negative); Leukocyte Esterase-Dipstick Negative /ul (Negative); Nitrite-Dipstick Negative (Negative); Occult Blood-Urine 10 /ul (Negative); Protein-Dipstick 100 mg/dl (Negative); Urine Bilirubin Dipstick Negative (Negative); Urine Clarity Sl. Cloudy (Clear); Urine Urobilinogen Normal (Normal); Urine pH 6.5 (5.0 - 8.0)
[2020-05-20] MEDS: Morphine 4 MG/ML Syringe IV (22:12)
--- NOTE | 2020-05-20 22:12 | ED.VISSUMM ---
- ER Visit Summary Date of Service: 05/20/20 Chief Complaint: Multiple complaints History of Present Illness: The patient is a 39 F presenting with multiple complaints. Patient states that she started to feel ill today. She has had fever up to 100.2 axillary. She has had chills and body aches. She has had shortness of breath and cough productive of sputum. She complains of headache. She also complains of right upper and right lower quadrant tenderness. She has history of previous gastric bypass surgery, left ovary removal, and appendectomy. 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 Physical Examination: Vitals are stable. Patient is afebrile. Alert no acute distress. Pulse ox 96% on room air HEENT exam is unremarkable. Pharynx is normal Neck is supple. No meningismus Lungs are clear and equal bilaterally. Heart is regular rate and rhythm. Abdomen is soft mild right upper and right lower quadrant tenderness with no guarding or rebound Extremities are unremarkable. Skin is warm and dry. No rash No focal neurologic deficit. Remainder of exam is unremarkable. Emergency Department Course and Treatment: Patient given IV fluids, morphine, Zofran. Labs are pending at this time and will be checked out to the oncoming physician. Disposition: Pending Impression: Viral illness This note was generated with [employer] dictation software. It may contain incorrect words, spelling, and punctuation that were not noted in review of the chart prior to signing ED Disposition - Plan for ED Patient: Referrals: Chandni Wang NP-C [Primary Care Provider] -
--- NOTE | 2020-05-20 22:15 | RAD_ITS ---
STUDY: X-RAY CHEST REASON FOR EXAM: Female, 39 years old. Shortness of breath. Cough. TECHNIQUE: Single AP portable view of the chest. COMPARISON: 08-13-12 FINDINGS: The lungs are clear and expanded. There is no demonstrated pleural abnormality. Normal size heart. Normal mediastinum and yolande. Normal visualized pulmonary arteries. Normal visualized aortic arch and descending thoracic aorta. Normal visualized thoracic spine. Normal visualized ribs, clavicles, and shoulders. There is no demonstrated abnormality of the visualized soft tissue structures of the upper abdomen. RAD/Chest 1 View (Portable) IMPRESSION: No acute cardiopulmonary disease or major interval change. Electronically Signed: Femi Brennan DO at 22:39 EDT Tel [phone], Service support ,
[2020-05-20 22:17] LABS: Red Blood Cells-Urine 0-5 SEEN /hpf (0-5); Squamous Epithelial Cells - UA 10-25 SEEN /hpf (5-10); White Blood Cells 0-5 SEEN /hpf (0-5)
[2020-05-20 22:21] LABS: Absolute Lymphocyte Count 1.93 X10^3/uL (0.83-4.51); Absolute Neutrophil Count 4.8 X10^3/uL (2.0-7.7); Basophil# 0.07 X10^3/uL; Basophil% 0.9 % (0-1); Eosinophil# 0.45 X10^3/uL; Eosinophils% 5.6 % (0-5); Hematocrit 40.9 % (37-47); Hemoglobin 13.7 g/dL (12.0-15.0); Lymphocyte # 1.93 X10^3/ul (4.0); Lymphocyte % 24.1 % (19-41); Mean Corp Hgb Conc 33.5 g/dL (32-36); Mean Corpuscular Hgb 28.4 pg (27.0-32.0); Mean Corpuscular Volume 84.9 fL (81-99); Mean Platelet Vol. 11.8 fl (6.2-12.0); Monocyte# 0.71 X10^3/uL; Monocyte% 8.9 % (0-10); NRBC Flagged by Analyzer 0 % (0-5); Neutrophil # 4.83 X10^3/uL (2.7-7.7); Neutrophil % 60.4 % (47-70); POSITIVE COUNT YES; Platelet Count 157 K/mm3 (150-450); RBC Distribution Width CV 12.9 % (11.6-14.6); RBC Distribution Width SD 39.6 fl (35.1-43.9); Red Blood Count 4.82 M/mm3 (4.2-5.4)
[2020-05-20 22:28] LABS: ALB/GLOB Ratio 0.9 RATIO (0.9-2.4); AST(SGOT) 35 U/L (15-37); Alanine Aminotransfer ALT/SGPT 23 U/L (13-56); Albumin, Serum 3.4 g/dL (3.2-5.0); Alkaline Phosphatase 90 U/L (45-117); Anion Gap 3 (5-15); BUN 14 mg/dL (7-18); BUN/Creat Ratio 17.2 RATIO (10-20); Calcium,Total 8.5 mg/dL (8.5-10.1); Chloride 107 mmol/L (98-107); Creatinine, Serum 0.81 mg/dL (0.55-1.02); D-Dimer Quantitative (DVT/PE) 0.43 FEU/ug/m (0.27-0.49); EST Glomerular Filtration Rate 83 mL/min (>60); Est Glom Filt Rate - Afr Amer 101 mL/min (>60); Estimated Creatinine Clearance 87.29 ml/min; Globulin 3.8 g/dL (2.2-4.2); Glucose 88 mg/dL (74-106); Lipase 35 U/L (73-393); Potassium 3.8 mmol/L (3.5-5.1); Protein, Total 7.2 g/dL (6.4-8.2); Sodium Level 138 mmol/L (136-145)
[2020-05-20 22:29] LABS: Differential Indicated SCAN CRITERIA MET; Internal QC Validated? YES +Cl - CLEAR BKGD
[2020-05-20 22:30] LABS: Pregnancy, Serum, hCG Quali. NEGATIVE Negative
--- NOTE | 2020-05-20 22:40 | EKG12_ITS ---
Test Reason : SOB Blood Pressure : / mmHG Vent. Rate : 078 BPM Atrial Rate : 078 BPM P-R Int : 130 ms QRS Dur : 090 ms QT Int : 398 ms P-R-T Axes : 057 034 011 degrees QTc Int : 453 ms Normal sinus rhythm Normal ECG Confirmed by KIMBERLI KUHN ([id number]), state editor LIZETTE AGEE ([id number] on 05/24/2020 11:43:55 AM Referred By: Confirmed By:KIMBERLI KUHN
[2020-05-20 22:44] LABS: Differential Comment SCANNED
[2020-05-21 00:05] VITALS: BP 124/73; PULSE 82; RESP 16; TEMP 36.9; O2SAT 96
--- NOTE | 2020-05-21 01:42 | DCINST.ED_ITS ---
ED Disposition - Plan for ED Patient: Disposition: Home or Assisted Living Instructions: ED Upper Resp Infec No Abx Tx Prescriptions: Hydrocodone Bitart/Apap 5-325 [[place] 5MG-325MG] 1 tablet PO Q4H PRN PRN 2 Days #5 tablet PRN Reason: Pain Transmission Status: Received by PRASHANTH [id number] Referrals: Chandni Wang, WEIGHT CHECKER-C [Primary Care Provider] - 2 Days
--- NOTE | 2020-05-21 01:42 | ED.DEP ---
ED Disposition - Plan for ED Patient: Disposition: Home or Assisted Living Instructions: ED Upper Resp Infec No Abx Tx Prescriptions: Hydrocodone Bitart/Apap 5-325 [[place] 5MG-325MG] 1 tablet PO Q4H PRN PRN 2 Days #5 tablet PRN Reason: Pain Transmission Status: Received by PRASHANTH [id number] Referrals: Chandni Wang, TASSEL CLIPPER-C [Primary Care Provider] - 2 Days
[2020-05-21] MEDS: oxyCODONE 5 MG Tablet PO (01:53)
[2020-05-21 02:07] VITALS: BP 137/83; PULSE 78; RESP 20; O2SAT 94
== END 2020-05-21 02:07 | disposition home or self-care (01) ==
PROVIDERS: Emergency Medicine; Emergency Provider Emergency Medicine; PCP Nurse Practitioner Primary Care
DX: B34.9 Viral infection, unspecified (principal); R05 Cough; R51 Headache; R50.9 Fever, unspecified; M79.10 Myalgia, unspecified site; R06.00 Dyspnea, unspecified; R10.811 Right upper quadrant abdominal tenderness; R10.813 Right lower quadrant abdominal tenderness; Z86.711 Personal history of pulmonary embolism; Z98.84 Bariatric surgery status; Z72.0 Tobacco use
CPT/HCPCS: 71045; 76830; 80053; 81001; 83690; 84703; 85025; 85379; 87635; 93005; 93976; 94799; 96361; 96374; 96375; 99285; J7030; A4216; J2405; U0003

== ENCOUNTER 2021-08-04 11:22 | Emergency (ER) | payer OTHER, SELFPAY ==
[2021-08-04 11:23] VITALS: BP 151/85; PULSE 79; RESP 16; TEMP 37; O2SAT 98; BMI 30.7
[2021-08-04 11:47] VITALS: PULSE 78; RESP 19; O2SAT 99
--- NOTE | 2021-08-04 11:54 | EKG12_ITS ---
Test Reason : CP Blood Pressure : / mmHG Vent. Rate : 071 BPM Atrial Rate : 071 BPM P-R Int : 108 ms QRS Dur : 086 ms QT Int : 402 ms P-R-T Axes : 061 048 038 degrees QTc Int : 436 ms Sinus rhythm with short OK Otherwise normal ECG Confirmed by ADOLFO VALE, HIPOLITO ([id number]), state editor KEYLA MACKENZIE ([id number]) on 08/08/2021 12:15:18 PM Referred By: ADOLPH/JOSE ARMANDO Confirmed By:TITO MATA MD
--- NOTE | 2021-08-04 11:55 | ED.VIS.CHEST ---
HPI History of Present Illness Chief Complaint: Chest Pain Informant: patient Narrative Narrative: 40-year-old female presents the emergency room with chest pain and shoulder pain. Patient states that this began today she notes associated nausea and headache. She feels fatigue. She notes the chest pain feels like a heaviness and is made worse when she moves her left arm. No recent falls or injuries. PFSH PFS Medical History (Updated 08/04/21 @ 11:[address] Carlos Dong DO) Depression Home Medications venlafaxine [Effexor XR] 37.5 mg PO DAILY 08/04/21 [History Last Taken Unknown] Allergy/AdvReac Type Severity Reaction Status Date / Time codeine Allergy Rash Verified 05/20/20 20:42 NSAIDS (Non-Steroidal AdvReac has had Verified 05/20/20 20:42 Anti-Inflamma gastric bypass and can't marguerite. oral nsaids ropinirole [From Requip] AdvReac Low blood Verified 05/20/20 20:42 pressure Surgical History H/O gastric bypass Social History (Updated 08/04/21 @ 11:[address] Carlos Dong DO) Smoking Status: Current every day smoker tobacco type: cigarettes substance use type: does not use ROS ROS ED Constitutional Constitutional ED: Denies chills or weight loss Eyes Eyes: Denies change in vision or diplopia ENT ENT ED: Denies ear pain, rhinorrhea or sore throat Cardiovascular Cardiovascular: Reports chest pain; Denies orthopnea, palpitations or racing heartbeat Respiratory/Chest Respiratory/Chest: Denies cough, dyspnea or orthopnea Gastrointestinal Gastrointestinal: Reports nausea; Denies abdominal pain, diarrhea or vomiting Genitourinary Genitourinary ED: Denies dysuria, hematuria or urinary frequency Musculoskeletal Musculoskeletal: Reports other Details: Left shoulder pain ; Denies arthralgias or myalgias Integumentary Denies abscess or rash Neurologic Neurologic: Reports headache(s); Denies weakness Psychiatric Psychiatric: Denies anxiety, depression, suicidal ideation or suicidal thoughts Endocrine Endocrinology: Denies polydipsia, polyphagia or polyuria Allergic/Immunologic Allergic/Immunologic ED: Denies mouth swelling, tongue swelling or urticaria EXAM Physical Exam Const Vital Signs: 08/04/21 11:23 08/04/21 11:47 08/04/21 11:58 Temperature 98.6 F Temperature Source Temporal Pulse Rate 79 78 Respiratory Rate 16 19 H Respiratory Effort Normal Non-Labored Blood Pressure 151/85 H Blood Pressure Mean 107 Pulse Ox 98 99 Oxygen Delivery Method Room Air Room Air 08/04/21 13:22 Temperature Temperature Source Pulse Rate 73 Respiratory Rate 17 Respiratory Effort Blood Pressure Blood Pressure Mean Pulse Ox 96 Oxygen Delivery Method Room Air Positive well nourished and well developed General Appearance ED: well developed HEENT Reports normocephalic, head/scalp atraumatic and moist mucous membranes Eyes PERRL and EOMs intact bilaterally Neck no lymphadenopathy, supple and no JVD Chest Wall Chest Narrative: The left anterior chest wall is very tender to palpation. The left shoulder is also tender to palpation. Resp normal respiratory effort and clear to auscultation bilaterally Cardio regular rate, regular rhythm and no murmurs GI normal to inspection, nondistended, normoactive bowel sounds and non-tender Palpation: soft Back/Spine no CVA tenderness and normal ROM Extremity normal to inspection General Extremety ED: Negative for edema General Extremity: Negative for edema Neuro oriented x3 and CN's II-XII intact bilaterally Sensorium / Orientation: alert Motor Exam: strength 5/5 throughout Psych mental status grossly normal Mood & Affect: Negative for depressed or tearful Skin no rashes or lesions noted and no wounds Heart Score History: Slightly/Non-Suspicious ECG: Normal Age: </= 45 years Risk Factors: 1 or 2 Risk Factors Troponin: </= Normal Limit Score: 1 MDM MDM MDM Narrative Medical decision making narrative: Covid test is negative. D-dimer troponin are negative. CBC is normal. BMP is normal. My interpretation of the chest x-ray is no acute process. Patient's had no events on the monitor. She received a dose of Toradol. At this point I think the patient is safe for discharge. I do not suspect a cardiac etiology. Her symptoms are reproducible with palpation. Lab Data Attestation: I reviewed the patient's lab results. Labs: Laboratory Results - last 24 hr 08/04/21 08/04/21 08/04/21 11:40 11:40 11:40 WBC 7.2 RBC 5.00 Hgb 14.4 Hct 43.9 MCV 87.8 MCH 28.8 MCHC 32.8 RDW Std Deviation 42.9 RDW Coeff of [place] 13.4 Plt Count 261 MPV 10.9 Immature Gran % (Auto) 0.100 Neut % (Auto) 66.1 Lymph % (Auto) 19.8 [place] % (Auto) 5.7 Eos % (Auto) 7.2 H Baso % (Auto) 1.1 H Absolute Neuts (auto) 4.8 Absolute Lymphs (auto) 1.43 Nucleated RBC % 0 D-Dimer Quant (PE/DVT) 0.31 Sodium 141 Potassium 4.1 Chloride 108 H Carbon Dioxide 28.0 Anion Gap 5 BUN 13 Creatinine 0.84 Estim Creat Clear Calc 83.34 Est GFR (MDRD) Af Amer 96 Est GFR (MDRD) Non-Af 79 BUN/Creatinine Ratio 15.4 Glucose 115 H Calcium 8.7 Troponin I High Sens 6 Radiography Diagnostic Testing: Clinical Impression(s) from Imaging Studies Chest X-Ray 08/04/21 11:58 IMPRESSION: Nonacute portable x-ray examination of the chest. Electronically Signed: Sourav Leger MD ([place]) at 12:09 EDT , Service support , EKG Initial EKG: Attestation: I personally reviewed and interpreted this EKG as follows: Comments: Normal sinus rhythm with a ventricular rate of 71 bpm. Shortened CO interval without delta wave. Discharge Plan Triage Chief Complaint: Chest Pain ED Provider: Carlos Dong Dx/Rx/DC Orders Clinical Impression: Chest pain Instructions: ED Chest Pain, Noncardiac Prescriptions: No Action venlafaxine [Effexor XR] 37.5 mg Capsule,Extended Release 24hr 37.5 mg PO DAILY RF: 0 Primary Care Provider: Chandni Wang NP Referrals: Chandni Wang NP, SENIOR SALES OPERATIONS MANAGER-C [Primary Care Provider] - 3-5 Days if not improving Disposition Disposition: Home, Self Care
--- NOTE | 2021-08-04 11:58 | RAD_ITS ---
STUDY: X-RAY CHEST REASON FOR EXAM: Female, 40 years old. chest pain TECHNIQUE: AP COMPARISON: None. FINDINGS: EKG leads project over the chest. The lungs are clear and expanded. There is no demonstrated pleural abnormality. Normal size heart. Normal mediastinum and yolande. Normal visualized pulmonary arteries. Normal visualized aortic arch and descending thoracic aorta. Normal visualized thoracic spine. Normal visualized ribs, clavicles, and shoulders. There is no demonstrated abnormality of the visualized soft tissue structures of the upper abdomen. RAD/Chest 1 View (Portable) IMPRESSION: Nonacute portable x-ray examination of the chest. Electronically Signed: Sourav Leger MD ([place]) at 12:09 EDT , Service support ,
[2021-08-04 12:07] LABS: Absolute Lymphocyte Count 1.43 X10^3/uL (0.83-4.51); Absolute Neutrophil Count 4.8 X10^3/uL (2.0-7.7); Basophil# 0.08 X10^3/uL; Basophil% 1.1 % (0-1); Eosinophil# 0.52 X10^3/uL; Eosinophils% 7.2 % (0-5); Hematocrit 43.9 % (37-47); Hemoglobin 14.4 g/dL (12.0-15.0); Lymphocyte # 1.43 X10^3/ul (0.83-4.51); Lymphocyte % 19.8 % (19-41); Mean Corp Hgb Conc 32.8 g/dL (32-36); Mean Corpuscular Hgb 28.8 pg (27.0-32.0); Mean Corpuscular Volume 87.8 fL (81-99); Mean Platelet Vol. 10.9 fl (6.2-12.0); Monocyte# 0.41 X10^3/uL; Monocyte% 5.7 % (0-10); NRBC Flagged by Analyzer 0 % (0-5); Neutrophil # 4.78 X10^3/uL (2.7-7.7); Neutrophil % 66.1 % (47-70); Platelet Count 261 K/mm3 (150-450); RBC Distribution Width CV 13.4 % (11.6-14.6); RBC Distribution Width SD 42.9 fl (35.1-43.9); White Blood Count 7.2 K/mm3 (4.4-11.0)
[2021-08-04] MEDS: Ketorolac 30 MG/ML Syringe IV (12:08)
[2021-08-04 12:15] LABS: D-Dimer Quantitative (DVT/PE) 0.31 FEU/ug/m (0.27-0.49)
[2021-08-04 12:20] LABS: Anion Gap 5 (5-15); BUN 13 mg/dL (7-18); BUN/Creat Ratio 15.4 RATIO (10-20); Calcium,Total 8.7 mg/dL (8.5-10.1); Chloride 108 mmol/L (98-107); Creatinine, Serum 0.84 mg/dL (0.55-1.02); EST Glomerular Filtration Rate 79 mL/min (>60); Est Glom Filt Rate - Afr Amer 96 mL/min (>60); Estimated Creatinine Clearance 83.34 ml/min; Glucose 115 mg/dL (74-106); Potassium 4.1 mmol/L (3.5-5.1); Sodium Level 141 mmol/L (136-145); Troponin-I HS 6 pg/mL (3.0-54.0)
[2021-08-04 13:22] VITALS: PULSE 73; RESP 17; O2SAT 96
== END 2021-08-04 13:55 | disposition home or self-care (01) ==
PROVIDERS: Emergency Provider Emergency Medicine; PCP Nurse Practitioner Primary Care
DX: R07.89 Other chest pain (principal); R53.83 Other fatigue; R11.0 Nausea; F32.9 Major depressive disorder, single episode, unspecified; Z79.899 Other long term (current) drug therapy; F17.210 Nicotine dependence, cigarettes, uncomplicated
CPT/HCPCS: 71045; 80048; 84484; 85025; 85379; 87426; 93005; 96374; 99285; A4216

== ENCOUNTER 2021-08-31 12:49 | Emergency (ER) | payer OTHER, SELFPAY ==
[2021-08-31 12:50] VITALS: BP 145/90; PULSE 87; RESP 16; TEMP 35.8; O2SAT 100; BMI 30.3
[2021-08-31] MEDS: DiphenhydrAMINE 50 MG/ML Syringe 25 MG IV ×2 (14:01→14:37)
[2021-08-31] MEDS: proCHLORPERazine 10 MG/2 ML Vial IV (14:01)
[2021-08-31] MEDS: Ketorolac 30 MG/ML Syringe IV (14:01)
[2021-08-31] MEDS: 0.9% Normal Saline 1,000 ML 999 ML IV (14:05)
--- NOTE | 2021-08-31 14:10 | EX.ED.VIS.HA ---
HPI History of Present Illness Chief Complaint: Headache Informant: patient Onset/Context/Timing Onset: Today Current Severity: Mild Maximum Severity: Moderate Associated Symptoms/Injury Associated Symptoms: Negative for Fever Narrative Narrative: 40-year-old female known history of a prior TIA and a patent foramen ovale. Prior gastric bypass surgery. Has been getting headaches over the last several months. I do not have a specific diagnosis. She denies any trauma she is on no blood thinners. She denies any fever. 7 headaches come on they start in her forehead and go straight through the back of her head. She denies any trouble moving arms or legs. Prior similar symptoms: Yes Recent Illness/Hospitalization: No PFSH PFSH Medical History Depression Transient ischemic attack (TIA) Home Medications venlafaxine [Effexor XR] 37.5 mg PO DAILY 08/04/21 [History Last Taken Unknown] Allergy/AdvReac Type Severity Reaction Status Date / Time codeine Allergy Rash Verified 08/31/21 12:54 NSAIDS (Non-Steroidal AdvReac has had Verified 08/31/21 12:54 Anti-Inflamma gastric bypass and can't marguerite. oral nsaids ropinirole [From Requip] AdvReac Low blood Verified 08/31/21 12:54 pressure Surgical History H/O gastric bypass Social History Smoking Status: Current every day smoker tobacco type: cigarettes substance use type: does not use ROS ROS ED ROS Narrative Denies recent illness. Review of Systems ROS Unobtainable: Denies due to encephalopathy Constitutional Constitutional ED: Denies fever(s) Eyes Eyes: Denies change in vision ENT ENT ED: Denies ear pain Cardiovascular Cardiovascular: Denies chest pain Respiratory/Chest Respiratory/Chest: Denies dyspnea Gastrointestinal Gastrointestinal: Denies abdominal pain Genitourinary Genitourinary ED: Denies dysuria Musculoskeletal Musculoskeletal: Denies myalgias Integumentary Denies rash Neurologic Neurologic: Denies headache(s) Psychiatric Psychiatric: Denies depression Endocrine Endocrinology: Denies polyuria Hematologic/Lymphatic Hematologic/Lymphatic: Denies easy bruising Allergic/Immunologic Allergic/Immunologic ED: Denies urticaria EXAM Physical Exam Narrative Exam Narrative: White female no acute distress vital signs stable afebrile. Patient sitting in bed no distress. H EENT exam unremarkable. Pupils round reactive light his motions are intact normal speech no facial droop. No trauma. No sinus tenderness. Neck nontender no meningismus. Lungs clear to auscultation. Heart regular rhythm. Abdomen soft nontender. Moving all 4 extremities no edema. Normal motor strength. Neurologically she is awake alert. No focal motor or sensory deficits. NIH of 0. Fingertip to nose [id number] within normal limits. Const Vital Signs: 08/31/21 12:50 Temperature 96.4 F L Temperature Source Temporal Pulse Rate 87 Respiratory Rate 16 Blood Pressure 145/90 H Blood Pressure Mean 108 Pulse Ox 100 Oxygen Delivery Method Room Air Positive well nourished and well developed; Negative for obese, cachectic, contractures or unkempt General Appearance ED: well developed and NAD; Negative for unkempt, cachectic, contractures, cyanotic or diaphoretic Nutritional Appearance: Negative for cachectic or obese HEENT Reports normocephalic and moist mucous membranes atraumatic; Negative for trauma or tenderness Eyes PERRL and EOMs intact bilaterally General Eye ED: Negative for pale conjunctiva or scleral icterus Neck no lymphadenopathy, supple, no meningeal signs and no JVD General: Negative for tenderness Resp normal respiratory effort and clear to auscultation bilaterally Auscultation: Negative for rales, rhonchi or wheezes Cardio regular rate, regular rhythm, S1 normal heart sound, S2 normal heart sound and no murmurs GI non-tender and non-distended Auscultation: normoactive bowel sounds Palpation: soft; Negative for tender or guarding Back/Spine no CVA tenderness General Back: Negative for CVA tenderness or tenderness Extremity normal to inspection, full ROM and normal capillary refill Neuro oriented x3 and CN's II-XII intact bilaterally Sensorium / Orientation: awake, alert, oriented to person, oriented to place and oriented to time; Negative for orientation impaired or lethargic Motor Exam: strength 5/5 throughout Psych mental status grossly normal Appearance: Negative for unkempt Skin Lesions: no lesions Rashes: no rashes MDM MDM MDM Narrative Medical decision making narrative: 40-year-old female with acute on chronic headaches. Normal exam. Prior CAT scan and CTA done at another facility. Exam benign today. She was treated with IV Toradol, fluids, Compazine and Benadryl. Headache resolved. Repeat exam at 3:20 PM she is doing well and is comfortable being discharged home and has a ride. Her neurologic exam remains normal. Discharge Plan Triage Chief Complaint: Headache ED Provider: Vince Prieto Dx/Rx/DC Orders Clinical Impression: Acute headache, History of TIAs Instructions: ED Headache Unspecified Prescriptions: No Action venlafaxine [Effexor XR] 37.5 mg Capsule,Extended Release 24hr 37.5 mg PO DAILY RF: 0 Primary Care Provider: Chandni Wang NP Referrals: Chandni Wang NP, [facility] [Primary Care Provider] - 3-5 Days if not improving Activity Restrictions/Additional Instructions: Plenty of fluids and rest. Tylenol and Motrin for pain. Follow-up with your primary care provider as needed. Disposition Disposition: Home, Self Care
[2021-08-31 15:34] VITALS: RESP 16; O2SAT 98
== END 2021-08-31 15:34 | disposition home or self-care (01) ==
PROVIDERS: Emergency Provider Emergency Medicine; PCP Nurse Practitioner Primary Care
DX: R51.9 Headache, unspecified (principal); F32.A Depression, unspecified; Z86.73 Personal history of transient ischemic attack (TIA), and cerebral infarction without residual deficits; Z98.84 Bariatric surgery status; Z87.74 Personal history of (corrected) congenital malformations of heart and circulatory system; Z79.899 Other long term (current) drug therapy; F17.210 Nicotine dependence, cigarettes, uncomplicated
CPT/HCPCS: 96361; 96374; 96375; 99282; J7030; A4216

== ENCOUNTER 2021-10-05 21:02 | Emergency (ER) | payer OTHER, SELFPAY ==
[2021-10-05 21:02] VITALS: BP 124/89; PULSE 87; RESP 16; TEMP 36.4; O2SAT 100; BMI 30.3
--- NOTE | 2021-10-05 21:12 | EKG12_ITS ---
Test Reason : REPEAT Blood Pressure : / mmHG Vent. Rate : 063 BPM Atrial Rate : 063 BPM P-R Int : 128 ms QRS Dur : 096 ms QT Int : 416 ms P-R-T Axes : 050 035 030 degrees QTc Int : 425 ms Normal sinus rhythm Normal ECG Confirmed by ADRIEL VALE, SLICK ([id number]), associate editor KEYLA MACKENZIE ([id number]) on 10/07/2021 1:27:48 PM Referred By: DAYANNA Confirmed By:SLICK MOREL MD
--- NOTE | 2021-10-05 21:34 | RAD_ITS ---
STUDY: X-RAY CHEST REASON FOR EXAM: Female, 40 years old. chest pain TECHNIQUE: Single AP portable view of the chest. COMPARISON: August 04, 2021 FINDINGS: The lungs are clear and expanded. There is no demonstrated pleural abnormality. Normal size heart. Normal mediastinum and yolande. Normal visualized pulmonary arteries. Normal visualized aortic arch and descending thoracic aorta. Normal visualized thoracic spine. Normal visualized ribs, clavicles, and shoulders. There is no demonstrated abnormality of the visualized soft tissue structures of the upper abdomen. RAD/Chest 1 View (Portable) IMPRESSION: Normal x-ray examination of the chest. Electronically Signed: Miles Chavarria MD at 22:23 EST , Service support ,
[2021-10-05 21:35] LABS: Absolute Lymphocyte Count 2.36 X10^3/uL (0.83-4.51); Absolute Neutrophil Count 5.1 X10^3/uL (2.0-7.7); Basophil% 1.1 % (0-1); Eosinophil# 0.56 X10^3/uL; Eosinophils% 6.4 % (0-5); Hematocrit 42.1 % (37-47); Hemoglobin 14.1 g/dL (12.0-15.0); Lymphocyte # 2.36 X10^3/ul (0.83-4.51); Lymphocyte % 26.8 % (19-41); Mean Corp Hgb Conc 33.5 g/dL (32-36); Mean Corpuscular Hgb 28.8 pg (27.0-32.0); Mean Corpuscular Volume 86.1 fL (81-99); Mean Platelet Vol. 10.3 fl (6.2-12.0); Monocyte# 0.65 X10^3/uL; Monocyte% 7.4 % (0-10); NRBC Flagged by Analyzer 0 % (0-5); Neutrophil # 5.11 X10^3/uL (2.7-7.7); Platelet Count 233 K/mm3 (150-450); RBC Distribution Width CV 13.1 % (11.6-14.6); RBC Distribution Width SD 41.1 fl (35.1-43.9); Red Blood Count 4.89 M/mm3 (4.2-5.4); White Blood Count 8.8 K/mm3 (4.4-11.0)
--- NOTE | 2021-10-05 21:35 | EDS_ITS ---
HPI History of Present Illness Chief Complaint: Chest Pain Informant: patient Onset/Context/Timing Onset: Today and Hours Activity at onset: gradual Location: Substernal Current Severity: Mild Maximum Severity: Mild Worsened By: Nothing Relieved By: Nothing Associated Symptoms: Positive for Dyspnea; Negative for Nausea, Vomiting, Diaphoresis, Cough, Fever, Lightheadedness and Acid Reflux Narrative Narrative: 40-year-old female with extensive past medical history of a stroke in May of this year in which they found the PFO. States she had a stress test this year which was negative. She never had any known cardiac disease. She had bilateral pulmonary emboli that occurred in the past after surgery. She had a work-up and there was no problems with any clotting factors. States tonight she was sitting at home had chest pain around 6:00 to radiate to both sides of her jaw. States it feels like someone sitting on my chest. Mild shortness of breath. No diaphoresis no nausea. No recent exertional symptoms. No leg pain or swelling. No hemoptysis. Prior Similar Symptoms: No Recent Illness/Hospitalization: No CVD Risk Factors: Negative for Hypertension, Diabetes and Hypercholesterolemia PE Risk Factors: Negative for Recent Travel/Surgery, Recent Immobilization, Prior DVT or PE and Cancer TAD Risk Factors: Negative for Marfan's Syndrome and Hypertension [facility] Medical History Depression Transient ischemic attack (TIA) Home Medications venlafaxine [Effexor XR] 37.5 mg PO DAILY 08/04/21 [History Last Taken Unknown] pantoprazole [Protonix] 40 mg PO DAILY #30 tab 10/05/21 [Rx Last Taken Unknown] topiramate 75 mg PO QHS 10/05/21 [History Last Taken Unknown] Allergy/AdvReac Type Severity Reaction Status Date / Time codeine Allergy Rash Verified 08/31/21 12:54 NSAIDS (Non-Steroidal AdvReac has had Verified 08/31/21 12:54 Anti-Inflamma gastric bypass and can't marguerite. oral nsaids ropinirole [From Requip] AdvReac Low blood Verified 08/31/21 12:54 pressure Surgical History H/O gastric bypass Social History Smoking Status: Current every day smoker tobacco type: cigarettes substance use type: does not use ROS ROS ED ROS Narrative Chest pain. Shortness of breath. Review of Systems ROS Unobtainable: Denies due to encephalopathy Constitutional Constitutional ED: Denies chills or fever(s) Eyes Eyes: Denies none ENT ENT ED: Denies ear pain Cardiovascular Cardiovascular: Reports as per HPI and chest pain; Denies palpitations or racing heartbeat Respiratory/Chest Respiratory/Chest: Reports dyspnea; Denies cough or sputum Gastrointestinal Gastrointestinal: Denies abdominal pain, diarrhea, nausea or vomiting Genitourinary Genitourinary ED: Denies dysuria Musculoskeletal Musculoskeletal: Denies myalgias Integumentary Denies rash Neurologic Neurologic: Denies headache(s) Psychiatric Psychiatric: Denies depression Endocrine Endocrinology: Denies polyuria Hematologic/Lymphatic Hematologic/Lymphatic: Denies easy bruising Allergic/Immunologic Allergic/Immunologic ED: Denies urticaria EXAM Physical Exam Narrative Exam Narrative: 40-year-old female no acute distress. Vital signs are stable afebrile. Pulse ox 9% on room air no signs hypoxia. HEENT exam unremarkable. Neck nontender no JVD. Lungs clear to auscultation bilaterally. Chest wall nontender. No ecchymosis or bruising no subcu air crepitance. No reproducible pain. Heart regular rate and rhythm no murmur., Abdomen soft nontender normal bowel sounds no peritoneal signs. Moving all 4 extremities. Normal automation and controls supervisor strength. Calves are nontender without edema. Neurologically she is awake and alert. No focal motor deficits at this time. Const Vital Signs: 10/05/21 21:02 10/05/21 21:06 10/05/21 21:38 Temperature 97.6 F L Temperature Source Temporal Pulse Rate 87 85 Respiratory Rate 16 14 Respiratory Effort Normal Respiratory Pattern Normal Blood Pressure 124/89 H 150/96 H Blood Pressure Mean 100 114 Pulse Ox 100 Oxygen Delivery Method Room Air Room Air 10/05/21 21:39 Temperature Temperature Source Pulse Rate Respiratory Rate Respiratory Effort Respiratory Pattern Blood Pressure Blood Pressure Mean Pulse Ox Oxygen Delivery Method Room Air Positive well nourished and well developed; Negative for obese, cachectic, contractures or unkempt General Appearance ED: well developed and NAD; Negative for unkempt, cachectic, contractures or pallor Nutritional Appearance: Negative for cachectic or obese HEENT Reports moist mucous membranes normocephalic and atraumatic Eyes PERRL and EOMs intact bilaterally Neck no lymphadenopathy, supple and no JVD General: Negative for tenderness Chest Wall inspection of chest normal and palpation of chest normal Resp normal respiratory effort and clear to auscultation bilaterally Effort and Inspection: respiratory distress Auscultation: Negative for rales, rhonchi or wheezes Cardio regular rate, regular rhythm, S1 normal heart sound, S2 normal heart sound and no murmurs Rate: Negative for bradycardia or tachycardic Back/Spine no CVA tenderness General Back: Negative for CVA tenderness Extremity normal to inspection General Extremety ED: Negative for edema General Extremity: Negative for edema Neuro oriented x3 and CN's II-XII intact bilaterally Sensorium / Orientation: awake, alert, oriented to person, oriented to place and oriented to time Motor Exam: strength 5/5 throughout Psych mental status grossly normal Appearance: Negative for unkempt Attitude: No agitated Mood & Affect: Negative for depressed or tearful Skin no rashes or lesions noted and no wounds General Skin Exam: Negative for jaundice or pallor Heart Score History: Moderately Suspicious ECG: Normal Age: </= 45 years Risk Factors: 1 or 2 Risk Factors Troponin: </= Normal Limit Score: 2 MDM MDM MDM Narrative Medical decision making narrative: 40-year-old female with midsternal chest pain that radiates to her jaws. Has had a prior stroke earlier this year. No known cardiac disease. She is also had bilateral pulmonary emboli in the past. She undergo cardiac work-up with also a D-dimer. Repeat exam at 10:45 PM patient is doing well. Feeling better. Chest pain is almost resolved. She said it was made worse tonight when she was eating. She is never been treated for gastroesophageal reflux. She did not want to do a GI cocktail. But she would take some Protonix. She does not want to have a second troponin done she is to work early in the morning. She understands why we are going to do it. Lab Data Attestation: I reviewed the patient's lab results. Lab results narrative: CBC normal white count 8. Hemoglobin 14. Electrolytes unremarkable gap is 7 normal BUN and creatinine. Glucose 161. Troponin less than 3. Patient had 2 EKGs they were unremarkable both of sinus rhythm. No signs of ID nor ischemia. Unchanged from prior also. Her D-dimer is elevated therefore I did order a CTA of the chest. Labs: Laboratory Results - last 24 hr 10/05/21 10/05/21 10/05/21 21:18 21:18 21:45 WBC 8.8 RBC 4.89 Hgb 14.1 Hct 42.1 MCV 86.1 MCH 28.8 MCHC 33.5 RDW Std Deviation 41.1 RDW Coeff of [place] 13.1 Plt Count 233 MPV 10.3 Immature Gran % (Auto) 0.300 Neut % (Auto) 58.0 Lymph % (Auto) 26.8 [place] % (Auto) 7.4 Eos % (Auto) 6.4 H Baso % (Auto) 1.1 H Absolute Neuts (auto) 5.1 Absolute Lymphs (auto) 2.36 Nucleated RBC % 0 D-Dimer Quant (PE/DVT) 0.51 H* Sodium 142 Potassium 3.7 Chloride 113 H Carbon Dioxide 22.0 Anion Gap 7 BUN 19 H Creatinine 0.98 Estim Creat Clear Calc 71.44 Est GFR (MDRD) Af Amer 81 Est GFR (MDRD) Non-Af 67 BUN/Creatinine Ratio 19.5 Glucose 161 H Calcium 8.7 Troponin I High Sens < 3 L Radiography Chest X-Ray - ED: 1 View, Read by ED Physician, Heart, Lungs, Mediastinum, Bony Structures and No Acute Disease Diagnostic Testing: Clinical Impression(s) from Imaging Studies Chest X-Ray 10/05/21 21:34 IMPRESSION: Normal x-ray examination of the chest. Electronically Signed: Miles Chavarria MD at 22:23 EST , Service support , Chest CTA 10/05/21 22:14 IMPRESSION: 1. No demonstrated pulmonary embolism or arterial dissection. 2. Minimal interstitial scarring is present in the superior segment of the right lower lobe. The remaining lung cardenas are clear. No consolidation or pulmonary edema or pleural effusion is seen. Electronically Signed: Miles Chavarria MD at 23:24 EST , Service support , Chest x-ray, single view, portable, interpreted by myself shows no acute abnormality. Normal cardiac silhouette and mediastinum. CT of the chest no acute abnormality. No PE read by the radiologist and reviewed by me. Rhythm Strip Rhythm Strip: Sinus Rhythm Rate: 83 Ectopy: PVC(s) EKG Initial EKG: Attestation: I personally reviewed and interpreted this EKG as follows: Interpretation: Sinus Rhythm and No Acute Injury Pattern Comments: Sinus rhythm rate 83 no acute signs of ID or ischemia. She does have a few PVCs. This EKG G is unchanged from ones from July. Prior: Unchanged Follow-up EKG: Attestation: I personally reviewed and interpreted this EKG as follows: Interpretation: Sinus Rhythm and No Acute Injury Pattern Comments: Second EKG done at 10:08 PM showed normal sinus rhythm rate of 63 with no PVCs. Otherwise unchanged from the first or prior. Prior EKG tracings: available for review Prior: Unchanged Discharge Plan Triage Chief Complaint: Chest Pain ED Provider: Vince Prieto Dx/Rx/DC Orders Clinical Impression: Chest pain, History of cardioembolic stroke, History of pulmonary embolus (PE) Instructions: ED Chest Pain, Uncertain Cause Prescriptions: New pantoprazole [Protonix] 40 mg tablet,delayed release (DR/EC) 40 mg PO DAILY Qty: 30 RF: 0 No Action venlafaxine [Effexor XR] 37.5 mg Capsule,Extended Release 24hr 37.5 mg PO DAILY RF: 0 topiramate 25 mg tablet 75 mg PO QHS RF: 0 Primary Care Provider: Chandni Wang NP Referrals: Chandni Wang NP, [facility] [Primary Care Provider] - Activity Restrictions/Additional Instructions: We do not have a specific cause for your chest pain. All your test tonight were normal. Other than the D-dimer. But the CAT scan did not show any blood clots. You had 2 EKGs that were normal. Your heart enzyme was normal. This may or may not be secondary to gastroesophageal reflux. You will be started on Protonix that would help decrease the acid in your stomach and esophagus and make this get significantly better. Follow-up with your doctor if not improving. Return emergency department if you are feeling a lot worse. Disposition Disposition: Home, Self Care
[2021-10-05] MEDS: Aspirin 81 MG TAB.CHEW 324 MG PO (21:37)
[2021-10-05 21:38] VITALS: BP 150/96; PULSE 85; RESP 14
[2021-10-05 21:59] LABS: Anion Gap 7 (5-15); BUN 19 mg/dL (7-18); BUN/Creat Ratio 19.5 RATIO (10-20); Calcium,Total 8.7 mg/dL (8.5-10.1); Chloride 113 mmol/L (98-107); Creatinine, Serum 0.98 mg/dL (0.55-1.02); EST Glomerular Filtration Rate 67 mL/min (>60); Est Glom Filt Rate - Afr Amer 81 mL/min (>60); Estimated Creatinine Clearance 71.44 ml/min; Glucose 161 mg/dL (74-106); Potassium 3.7 mmol/L (3.5-5.1); Sodium Level 142 mmol/L (136-145); Troponin-I HS < 3 pg/mL (3.0-54.0)
[2021-10-05 22:12] LABS: D-Dimer Quantitative (DVT/PE) 0.51 FEU/ug/m (0.27-0.49)
--- NOTE | 2021-10-05 22:14 | CT_ITS ---
STUDY: CTA CHEST REASON FOR EXAM: Female, 40 years old. cp. elevated d-dimer RADIATION DOSAGE (If Supplied By Facility): CTDIvol = ( 14.64 ) mGy, DLP = ( 460.20 ) mGycm TECHNIQUE: The examination was performed with the intravenous administration of IV 100mL Isovue-370. Post-processing of the angiographic images was performed, with multiplanar reformation and 3D reconstruction. Individualized dose optimization techniques were used for this CT. COMPARISON: Chest x-ray dated October 05, 2021. CTA of the chest dated August 13, 2012 FINDINGS: Normal enhancement of the main pulmonary artery and right and left pulmonary arteries. Normal enhancement of the bilateral peripheral pulmonary arteries. There is no demonstrated pulmonary embolism. Normal thoracic aorta and visualized great vessels. There is no demonstrated aortic dissection. Normal heart and pericardium. Normal mediastinum. Normal hilar regions. Normal visualized trachea and bronchi. The lungs are well expanded. Minimal interstitial scarring is present in the superior segment of the right lower lobe. The remaining lung cardenas are clear. No consolidation or pulmonary edema or pleural effusion is seen. Normal pleura. Normal chest wall structures. There are degenerative changes of thoracic spine. Gastric bypass changes noted. The remaining upper abdominal structures are stable. Mild cortical thinning and lobularity of the left kidney noted. CT/CTA Chest W/WO Contrast IMPRESSION: 1. No demonstrated pulmonary embolism or arterial dissection. 2. Minimal interstitial scarring is present in the superior segment of the right lower lobe. The remaining lung cardenas are clear. No consolidation or pulmonary edema or pleural effusion is seen. Electronically Signed: Miles Chavarria MD at 23:24 EST , Service support ,
--- NOTE | 2021-10-05 22:18 | EKG12_ITS ---
Test Reason : CP Blood Pressure : / mmHG Vent. Rate : 083 BPM Atrial Rate : 083 BPM P-R Int : 140 ms QRS Dur : 094 ms QT Int : 380 ms P-R-T Axes : 059 043 033 degrees QTc Int : 446 ms Sinus rhythm with occasional Premature ventricular complexes Otherwise normal ECG Confirmed by ADRIEL VALE, SLICK ([id number]), index editor KEYLA MACKENZIE ([id number]) on 10/07/2021 1:27:18 PM Referred By: DAYANNA Confirmed By:SLICK MOREL MD
[2021-10-05 23:40] VITALS: PULSE 89; RESP 18
== END 2021-10-05 23:41 | disposition home or self-care (01) ==
PROVIDERS: Emergency Provider Emergency Medicine; PCP Nurse Practitioner Primary Care
DX: R07.9 Chest pain, unspecified (principal); I49.3 Ventricular premature depolarization; Q21.1 Atrial septal defect; F32.A Depression, unspecified; Z86.73 Personal history of transient ischemic attack (TIA), and cerebral infarction without residual deficits; Z86.711 Personal history of pulmonary embolism; Z79.899 Other long term (current) drug therapy; F17.210 Nicotine dependence, cigarettes, uncomplicated
CPT/HCPCS: 71045; 71275; 80048; 84484; 85025; 85379; 93005; 99285; Q9967

== ENCOUNTER 2022-12-06 11:25 | Emergency (ER) | payer OTHER, SELFPAY ==
[2022-12-06 11:25] VITALS: BP 120/85; PULSE 93; RESP 16; TEMP 36.6; O2SAT 98; BMI 27.7
--- NOTE | 2022-12-06 12:26 | EKG12_ITS ---
Test Reason : ABDOMINAL PAIN Blood Pressure : / mmHG Vent. Rate : 075 BPM Atrial Rate : 075 BPM P-R Int : 122 ms QRS Dur : 088 ms QT Int : 402 ms P-R-T Axes : 052 038 029 degrees QTc Int : 448 ms Sinus rhythm with Premature ventricular complexes or Fusion complexes Otherwise normal ECG Confirmed by SHIVANI VALE, SAV ([id number]), subeditor KEYLA MACKENZIE ([id number]) on 12/08/2022 10:06:38 AM Referred By: Confirmed By:SAV PARRISH MD
--- NOTE | 2022-12-06 12:28 | CT_ITS ---
STUDY: CT ABDOMEN AND PELVIS WITH CONTRAST REASON FOR EXAM: Female, 42 years old. Right sided abdominal pain, gastric bypass -- IV PO Contrast RADIATION DOSAGE (If Supplied By Facility): CTDIvol = ( 18.04 ) mGy, DLP = ( 1190.62 ) mGycm TECHNIQUE: Transaxial images were obtained from the dome of the diaphragm to the symphysis pubis with oral contrast. Oral and amp; IV Gastrografin and amp; 100mL Isovue-300 was administered. Sagittal and coronal images were reconstructed. Individualized dose optimization techniques were used for this CT. COMPARISON: Comparison is made with prior examination dated 12/14/2019. FINDINGS: The visualized lung bases are unremarkable. The visualized portions of the heart are within normal limits. Normal liver. Normal gallbladder and extrahepatic biliary system. Normal spleen. Normal pancreas. Normal bilateral adrenal glands. Normal right kidney. Normal left kidney. The patient is status post subtotal gastrectomy for gastric bypass surgery. This is unchanged. Normal small intestine. Normal colon. There is non-visualization of the appendix. Normal abdominal aorta. Normal inferior vena cava. Normal retroperitoneum. Normal urinary bladder. There is absence of the uterus consistent with a prior hysterectomy. Fluid is seen within the vagina. Normal abdominal wall. Normal osseous structures. CT/Abdomen/Pelvis WITH Contrast IMPRESSION: Status post gastric bypass surgery. Fluid is seen within the vagina. Electronically Signed: Ramo Williamson MD at 14:35 EST ,
[2022-12-06] MEDS: Ondansetron 4 MG/2 ML Vial IV (12:37)
[2022-12-06] MEDS: Morphine 4 MG/ML Syringe IV (12:37)
[2022-12-06 12:38] LABS: Absolute Lymphocyte Count 1.64 X10^3/uL (0.83-4.51); Absolute Neutrophil Count 5.3 X10^3/uL (2.0-7.7); Basophil# 0.09 X10^3/uL; Basophil% 1.1 % (0-1); Eosinophil# 0.79 X10^3/uL; Eosinophils% 9.4 % (0-5); Hemoglobin 14.5 g/dL (12.0-15.0); Lymphocyte # 1.64 X10^3/ul (0.83-4.51); Lymphocyte % 19.5 % (19-41); Mean Corp Hgb Conc 32.2 g/dL (32-36); Mean Corpuscular Hgb 27.9 pg (27.0-32.0); Mean Corpuscular Volume 86.7 fL (81-99); Mean Platelet Vol. 10.6 fl (6.2-12.0); Monocyte# 0.57 X10^3/uL; Monocyte% 6.8 % (0-10); NRBC Flagged by Analyzer 0 % (0-5); Neutrophil # 5.31 X10^3/uL (2.7-7.7); Neutrophil % 62.8 % (47-70); Platelet Count 261 K/mm3 (150-450); RBC Distribution Width CV 13.2 % (11.6-14.6); RBC Distribution Width SD 41.1 fl (35.1-43.9); Red Blood Count 5.19 M/mm3 (4.2-5.4); White Blood Count 8.4 K/mm3 (4.4-11.0)
[2022-12-06 13:08] LABS: ALB/GLOB Ratio 0.8 RATIO (0.9-2.4); AST(SGOT) 22 U/L (15-37); Alanine Aminotransfer ALT/SGPT 21 U/L (13-56); Albumin, Serum 3.2 g/dL (3.2-5.0); Alkaline Phosphatase 89 U/L (45-117); Anion Gap 5 (5-15); BUN 19 mg/dL (7-18); Calcium,Total 8.6 mg/dL (8.5-10.1); Chloride 109 mmol/L (98-107); Creatinine, Serum 0.95 mg/dL (0.55-1.02); EST Glomerular Filtration Rate 69 mL/min (>60); Est Glom Filt Rate - Afr Amer 83 mL/min (>60); Estimated Creatinine Clearance 72.22 ml/min; Globulin 3.8 g/dL (2.2-4.2); Glucose 77 mg/dL (74-106); Lipase 76 U/L (73-393); Potassium 3.5 mmol/L (3.5-5.1); Sodium Level 141 mmol/L (136-145); Troponin-I HS 5 pg/mL (3.0-54.0)
[2022-12-06 13:44] VITALS: RESP 16
[2022-12-06 14:19] LABS: Bacteria 0 SEEN /hpf (None Seen); Mucous, Urine 0 SEEN /hpf (<or=2+); Red Blood Cells-Urine 0 SEEN /hpf (0-5); Squamous Epithelial Cells - UA 0 SEEN /hpf (5-10)
[2022-12-06 14:20] LABS: Color, Urine Yellow (Yellow); Glucose, Dipstick Normal (Normal); Ketone-Dipstick Negative (Negative); Leukocyte Esterase-Dipstick 25 /ul (Negative); Nitrite-Dipstick Negative (Negative); Occult Blood-Urine Negative /ul (Negative); Protein-Dipstick 100 mg/dl (Negative); Urine Bilirubin Dipstick Negative (Negative); Urine Clarity Clear (Clear); Urine Urobilinogen Normal (Normal)
[2022-12-06 14:22] LABS: Internal QC Validated? YES +Cl - CLEAR BKGD; Pregnancy, Urine Negative Negative
[2022-12-06 14:26] LABS: White Blood Cells 0-5 SEEN /hpf (0-5)
--- NOTE | 2022-12-06 16:30 | EDS_ITS ---
HPI HPI - GI History of Present Illness Chief Complaint: Abd Pain Informant: patient Narrative Narrative: Patient is a 42-year-old female with history of Agatha-en-Y gastric bypass, hysterectomy with salpingo-oophorectomy on the left secondary to ovarian torsion, migraines, TIA and possible abdominal hernia presenting with right- sided abdominal pain. Patient states she has had pain in her mid to right abdomen for the past 2 days. She was mild and seemed worse when she was crouching or with certain movements. States is worse if she would sit for too long. She has had some mild associated nausea and discomfort in the center of her chest that seems to radiate up from her epigastric region. She has her bowel movements have been okay and she is been passing. She has a mild cough which is unsure if is related to any of this. She denies any fever or chills. She has any urinary symptoms. 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 She is also prior appendectomy. She does have a history of kidney stones but states that this pain feels much different. She notes that postprandial she feels that her stomach is distended/bloated with increased pain and a lot of abdominal noises. She is not sure if this is related. No other complaints at this time. Is not currently on any antacids. [facility] Medical History Depression Transient ischemic attack (TIA) Home Medications venlafaxine 37.5 mg capsule,extended release 24 hr (Effexor XR) 37.5 mg PO DAILY 08/04/21 [History Last Taken Unknown] pantoprazole 40 mg tablet,delayed release (Protonix) 40 mg PO DAILY #30 tabs 10/05/21 [Rx Last Taken Unknown] topiramate 25 mg tablet 75 mg PO QHS 10/05/21 [History Last Taken Unknown] omeprazole 40 mg capsule,delayed release 40 mg PO DAILY #30 caps 12/06/22 [Rx Last Taken Unknown] Allergy/AdvReac Type Severity Reaction Status Date / Time codeine Allergy Rash Verified 12/06/22 11:27 NSAIDS (Non-Steroidal AdvReac has had Verified 12/06/22 11:27 Anti-Inflamma gastric bypass and can't marguerite. oral nsaids ropinirole [From Requip] AdvReac Low blood Verified 12/06/22 11:27 pressure Surgical History H/O gastric bypass Social History Smoking Status: Current every day smoker tobacco type: cigarettes substance use type: does not use ROS ROS ED Constitutional Constitutional ED: Denies chills or fever(s) ENT ENT ED: Denies sore throat Cardiovascular Cardiovascular: Reports chest pain; Denies palpitations Respiratory/Chest Respiratory/Chest: Reports cough; Denies dyspnea Gastrointestinal Gastrointestinal: Reports abdominal pain and nausea; Denies constipation, diarrhea, melena or vomiting Genitourinary Genitourinary ED: Denies dysuria, hematuria or urinary frequency Musculoskeletal Musculoskeletal: Reports back pain; Denies arthralgias or myalgias Integumentary Denies rash Neurologic Neurologic: Denies headache(s) or weakness Psychiatric Psychiatric: Denies anxiety Hematologic/Lymphatic Hematologic/Lymphatic: Denies easy bleeding or easy bruising EXAM Physical Exam Const Vital Signs: 12/06/22 11:25 12/06/22 13:44 Temperature 97.8 F Temperature Source Temporal Pulse Rate 93 Respiratory Rate 16 16 Blood Pressure 120/85 H Blood Pressure Mean 96 Pulse Ox 98 Oxygen Delivery Method Room Air Positive well nourished General Appearance ED: Negative for pallor HEENT Reports moist mucous membranes normocephalic and atraumatic Eyes PERRL and EOMs intact bilaterally Neck supple Resp normal respiratory effort and clear to auscultation bilaterally Cardio regular rate, regular rhythm and no murmurs GI non-tender and non-distended Auscultation: normoactive bowel sounds Palpation: soft; Negative for guarding, rigid, hernia or mass Back/Spine no CVA tenderness Neuro moves all extremities Sensorium / Orientation: alert, oriented to person, oriented to place and oriented to time Motor Exam: Negative for general weakness Psych mental status grossly normal Skin Skin Narrative: Superficial abrasions to forehead, patient states she recently scratched herself there General Skin Exam: Negative for jaundice or pallor MDM MDM MDM Narrative Medical decision making narrative: Is evaluated for right-sided abdominal pain. She also some postprandial symptoms. Differential includes but is not limited to gastritis, perforated ulcer, diverticulitis, small bowel obstruction, right ovarian cyst, right kidney stone and urinary tract infection. She is having some mild substernal discomfort so ACS is also in the differential. Patient is PE RC negative I do not suspect PE as a cause. She had prior appendectomy so appendicitis is not on the differential. Patient is she is given IV morphine and Zofran in the ER with significant improvement of her symptoms. She does not have a recurrence of her pain on repeat exams. Physical exam itself is pretty benign. Her CBC is normal. Her CMP is nonspecific with a mildly elevated chloride of 109 and a BUN of 19. Patient's test is negative lower suspicion for ectopic . Urinalysis is negative with no signs of infection. CT of the abdomen and pelvis with oral contrast is obtained as she has a history of Agatha-en-Y. There is nonspecific fluid within the vagina. Patient knows she has had some increased vaginal discharge and in the setting of her history of cysto vaginal fistula I am concerned about a possible recurrence of this. However I do not think this is really causing her pain. Given her history of Agatha-en-Y I am concerned she could have some reflux and her cardiac work-up is normal clued and a normal EKG/nonischemic EKG and a normal high-sensitivity troponin. Patient will be started back on a PPI (omeprazole) and discharged to follow-up with her primary care doctor as well as with her urologist. She is given return precautions. Discharged home in stable condition. Lab Data Attestation: I reviewed the patient's lab results. Labs: Laboratory Results - last 24 hr 12/06/22 12/06/22 12/06/22 12:27 12:37 14:10 WBC 8.4 RBC 5.19 Hgb 14.5 Hct 45.0 MCV 86.7 MCH 27.9 MCHC 32.2 RDW Std Deviation 41.1 RDW Coeff of Shade 13.2 Plt Count 261 MPV 10.6 Immature Gran % (Auto) 0.400 Neut % (Auto) 62.8 Lymph % (Auto) 19.5 Gordon % (Auto) 6.8 Eos % (Auto) 9.4 H Baso % (Auto) 1.1 H Absolute Neuts (auto) 5.3 Absolute Lymphs (auto) 1.64 Nucleated RBC % 0 Sodium 141 Potassium 3.5 Chloride 109 H Carbon Dioxide 27.0 Anion Gap 5 BUN 19 H Creatinine 0.95 Estim Creat Clear Calc 72.22 Est GFR (MDRD) Af Amer 83 Est GFR (MDRD) Non-Af 69 BUN/Creatinine Ratio 20.0 Glucose 77 Calcium 8.6 Total Bilirubin 0.30 AST 22 ALT 21 Alkaline Phosphatase 89 Troponin I High Sens 5 Total Protein 7.0 Albumin 3.2 Globulin 3.8 Albumin/Globulin Ratio 0.8 L Lipase 76 Urine Color Urine Clarity Urine pH Ur Specific [place] Urine Protein Urine Glucose (UA) Urine Ketones Urine Occult Blood Urine Nitrite Urine Bilirubin Urine Urobilinogen Ur Leukocyte Esterase Urine RBC Urine WBC Ur Squamous Epith Cells Urine Bacteria Urine Mucus Urine Test Negative 12/06/22 14:10 WBC RBC Hgb Hct MCV MCH MCHC RDW Std Deviation RDW Coeff of Shade Plt Count MPV Immature Gran % (Auto) Neut % (Auto) Lymph % (Auto) Gordon % (Auto) Eos % (Auto) Baso % (Auto) Absolute Neuts (auto) Absolute Lymphs (auto) Nucleated RBC % Sodium Potassium Chloride Carbon Dioxide Anion Gap BUN Creatinine Estim Creat Clear Calc Est GFR (MDRD) Af Amer Est GFR (MDRD) Non-Af BUN/Creatinine Ratio Glucose Calcium Total Bilirubin AST ALT Alkaline Phosphatase Troponin I High Sens Total Protein Albumin Globulin Albumin/Globulin Ratio Lipase Urine Color Yellow Urine Clarity Clear Urine pH 6.0 Ur Specific [place] 1.010 Urine Protein 100 H Urine Glucose (UA) Normal Urine Ketones Negative Urine Occult Blood Negative Urine Nitrite Negative Urine Bilirubin Negative Urine Urobilinogen Normal Ur Leukocyte Esterase 25 H Urine RBC 0 SEEN Urine WBC 0-5 SEEN Ur Squamous Epith Cells 0 SEEN Urine Bacteria 0 SEEN Urine Mucus 0 SEEN Urine Test Radiography Diagnostic Testing: Clinical Impression(s) from Imaging Studies Abdomen/Pelvis CT 12/06/22 12:28 IMPRESSION: Status post gastric bypass surgery. Fluid is seen within the vagina. Electronically Signed: Ramo Williamson MD at 14:35 EST , Rhythm Strip Rhythm Strip: Sinus Rhythm Rate: 75 Ectopy: None EKG Initial EKG: Attestation: I personally reviewed and interpreted this EKG as follows: Interpretation: Sinus Rhythm Comments: Normal sinus rhythm at a rate of 75 with fusion complexes/PVC present Normal intervals Normal axis Normal ST segments Discharge Plan Triage Chief Complaint: Abd Pain ED Provider: Bernice Shahid Dx/Rx/DC Orders Clinical Impression: Right-sided abdominal pain of unknown cause Instructions: ED Abdominal Pain Unkn Cause Fem Prescriptions: New omeprazole 40 mg capsule,delayed release(DR/EC) 40 mg PO DAILY Qty: 30 0RF No Action venlafaxine [Effexor XR] 37.5 mg Capsule,Extended Release 24hr 37.5 mg PO DAILY topiramate 25 mg tablet 75 mg PO QHS Label Comments: take 1 tablet by mouth three times a day pantoprazole [Protonix] 40 mg tablet,delayed release (DR/EC) 40 mg PO DAILY Qty: 30 0RF Primary Care Provider: Chandni Wang NP Referrals: Chandni Wang NP, [employer] [Primary Care Provider] - Activity Restrictions/Additional Instructions: Your CT did not show any acute hernia, ovarian cyst or any other obvious cause of your pain. Your lab work was normal and no signs of urinary tract infection. We will start you back on an antacid as you are at increased risk of ga stritis/GERD after your Agatha-en-Y surgery. Your CT did show some fluid in the vagina which could be a sign of a recurrence of your vaginal fistula. I recommend you follow-up with your urologist at [facility] for evaluation of this. Return to ER if you have any progression or worsening of your symptoms. Disposition Disposition: Home, Self Care
[2022-12-06 16:41] VITALS: BP 134/69; PULSE 71; RESP 15; O2SAT 98
== END 2022-12-06 16:42 | disposition home or self-care (01) ==
PROVIDERS: Emergency Provider Emergency Medicine; PCP Nurse Practitioner Primary Care; Visit Provider Emergency Medicine
DX: R10.9 Unspecified abdominal pain (principal); F17.210 Nicotine dependence, cigarettes, uncomplicated; R11.0 Nausea; Z98.84 Bariatric surgery status; Z79.899 Other long term (current) drug therapy; F32.A Depression, unspecified; G43.909 Migraine, unspecified, not intractable, without status migrainosus
CPT/HCPCS: 74177; 80053; 81001; 81025; 83690; 84484; 85025; 93005; 96374; 96375; 99283; Q9967; A4216; J2405

== ENCOUNTER 2023-07-04 15:31 | Emergency (ER) | payer OTHER, SELFPAY ==
[2023-07-04 15:32] VITALS: BP 148/120; PULSE 85; RESP 19; TEMP 36.6; O2SAT 98; BMI 31.2
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
[2023-07-04] MEDS: Diphth,Pertuss(Acell),Tet Vac 0.5 ML Vial IM (16:07)
[2023-07-04] MEDS: HYDROcodone Bitartrate/Apap 5/325 Tablet PO (16:08)
== END 2023-07-04 16:27 | disposition home or self-care (01) ==
PROVIDERS: Emergency Provider Emergency Medicine; PCP Nurse Practitioner Primary Care; Visit Provider Emergency Medicine
DX: S06.0X0A Concussion without loss of consciousness, initial encounter (principal); F17.210 Nicotine dependence, cigarettes, uncomplicated; Z23 Encounter for immunization; F32.A Depression, unspecified; Z79.899 Other long term (current) drug therapy; Z86.73 Personal history of transient ischemic attack (TIA), and cerebral infarction without residual deficits; I80.3 Phlebitis and thrombophlebitis of lower extremities, unspecified; S70.12XA Contusion of left thigh, initial encounter; T24.231A Burn of second degree of right lower leg, initial encounter; V86.56XA Driver of dirt bike or motor/cross bike injured in nontraffic accident, initial encounter
CPT/HCPCS: 90471; 90715; 99283

== ENCOUNTER → 2024-03-12 | Outpatient (CLI) | payer OTHER, SELFPAY ==
--- NOTE | 2024-03-12 14:50 | NEURO ---
NCS and/or EMG Patient Report Ordering Doctor: Chandni Wang NP DATE OF SERVICE: 03/12/24 Mirna presents with complaints of numbness and tingling in the right hand. Electrodiagnostic findings: Right median motor nerve demonstrates normal distal latency, amplitude and conduction velocity. Right ulnar motor response is within normal limits. Normal median and ulnar F?wave. Sensory response is within normal limits. Needle EMG testing was performed in the right upper limb. All muscles tested, including the cervical paraspinals, showed no evidence of denervation with normal motor unit action potentials. Electrodiagnostic impression: This a normal electrodiagnostic study of the right upper limb. There is no electrodiagnostic evidence for peripheral neuropathy including carpal tunnel or cubital tunnel syndrome. There is no electrodiagnostic evidence for cervical radiculopathy. Multi Select Codes Neurology Neurology Interp Codes: 37584-71 Musc test done w/n test comp (interp) and 53147-80 Nrv cndj test 7-8 studies (interp)
== END | disposition home or self-care (01) ==
LOC: PSN 13:38
PROVIDERS: PCP Nurse Practitioner Primary Care; Referring Provider Nurse Practitioner Primary Care; Visit Provider Nurse Practitioner Primary Care
DX: G56.00 Carpal tunnel syndrome, unspecified upper limb (principal); M25.539 Pain in unspecified wrist; R20.0 Anesthesia of skin
CPT/HCPCS: 95886; 95910